=== PATIENT | female | born 1950 | race Caucasian/White ===

== ENCOUNTER → 2016-02-19 | Outpatient (CLI) | payer OTHER, BC ==
[~2016-02-19] MED LIST: CITRACAL PO; CMD5 PO; CYAN3INJ; FRRS300 PO; MULT-506 PO; OXYC-57 PO; OXYSR20 PO
[2016-02-19 18:02] LABS: PROTHROMBIN TIME (PATIENT) 10.3 SECONDS (9.0-12.0)
[2016-02-19 18:11] LABS: BASO % 0.2 %; BASO ABS # 0.02 K/uL (0-0.2); COMPLETE YES; EOS % 0.5 %; HEMATOCRIT 34.4 % (37-47); IG% 0.4 %; LYMPH % 18.3 %; LYMPH ABS # 1.71 K/uL (1.2-3.4); MEAN CORPUSCULAR HGB CONC 29.9 g/dl (32-36); MEAN PLATELET VOLUME 8.9 fL (7.4-10.4); MONO % 5.9 %; NEUT % 74.7 %; PLATELET COUNT 271 K/uL (130-400); RED BLOOD COUNT 4.47 M/uL (4.2-5.4); WHITE BLOOD COUNT 9.34 K/uL (4.8-10.8)
[2016-02-19 18:13] LABS: ALT/SGPT 28 U/L (12-78); AST/SGOT 23 U/L (15-37); BLOOD UREA NITROGEN 8 mg/dl (7-18); BUN/CREATININE RATIO 10.7 (10-20); CALCIUM 8.5 mg/dl (8.5-10.1); CARBON DIOXIDE 27 mmol/L (21-32); CHLORIDE 109 mmol/L (98-107); CREATININE 0.71 mg/dl (0.60-1.20); GLUCOSE 119 mg/dl (70-99); SODIUM 143 mmol/L (136-145)
[2016-02-19 18:16] LABS: ALB/GLOB RATIO 0.9 (0.9-2); ALKALINE PHOSPHATASE 144 U/L (45-117)
== END | disposition home or self-care (01) ==
LOC: C.LABMFLN 15:00
PROVIDERS: ATTEND Family Medicine
DX: I82.4Y2 Acute embolism and thrombosis of unspecified deep veins of left proximal lower extremity (principal)

== ENCOUNTER → 2016-02-19 | Outpatient (CLI) | payer OTHER, BC ==
--- NOTE | 2016-02-19 13:07 | DIAGNOSTIC IMAGING REPORT ---
LEFT LOWER EXTREMITY VENOUS DOPPLER CLINICAL HISTORY: PHLEBITIS OF LEFT LEG COMPARISON STUDY: No previous studies for comparison. TECHNIQUE: Sonography of the deep venous system of the left lower extremity was performed. Compression and augmentation were evaluated. FINDINGS: There is occlusive thrombus within the left common femoral vein. This vessel appears expanded. There is also thrombus within the left greater saphenous vein. No additional sites of venous thrombus are identified within the left lower extremity. IMPRESSION: Occlusive deep venous thrombus within the left common femoral vein. The appearance favors acute thrombus. In addition, occlusive superficial thrombus is noted within the left greater saphenous vein. Electronically signed by: Gary Liu M.D. 02/19/2016 1:05 PM
== END | disposition home or self-care (01) ==
LOC: C.ULTRBC 12:10
PROVIDERS: ATTEND Family Medicine
DX: I82.412 Acute embolism and thrombosis of left femoral vein (principal); I82.812 Embolism and thrombosis of superficial veins of left lower extremity

== ENCOUNTER → 2016-03-25 | Outpatient (CLI) | payer OTHER, BC ==
[2016-03-25 13:19] LABS: HEMATOCRIT 32.1 % (37-47); MEAN CELL VOLUME 77.9 fL (80-100); MEAN CORPUSCULAR HEMOGLOBIN 22.8 pg (25-34); MEAN CORPUSCULAR HGB CONC 29.3 g/dl (32-36); PLATELET COUNT 269 K/uL (130-400); RED BLOOD COUNT 4.12 M/uL (4.2-5.4); WHITE BLOOD COUNT 6.19 K/uL (4.8-10.8)
[2016-03-25 13:23] LABS: FERRITIN 4.9 ng/ml (8.0-388.0)
[2016-03-25 13:44] LABS: OVALOCYTES 1+; VACUOLIZATION 1+
[2016-03-25 13:51] LABS: COMPLETE YES; LYMPH ABS # 1.42 K/uL (1.2-3.4)
[2016-03-25 13:53] LABS: MDIFF REQUEST Y
== END | disposition home or self-care (01) ==
LOC: C.LABMFLN 12:23
PROVIDERS: ATTEND Internal Medicine Hematology & Oncology
DX: I82.412 Acute embolism and thrombosis of left femoral vein (principal); D50.0 Iron deficiency anemia secondary to blood loss (chronic)

== ENCOUNTER → 2016-04-04 | Outpatient (CLI) | payer OTHER, BC ==
[~2016-04-04] MED LIST changes: +MethylPREDNISolone HOME PACK 16 MG TAB PO SCH; +OPTIRAY 320 IV PRN
--- NOTE | 2016-04-04 13:49 | DIAGNOSTIC IMAGING REPORT ---
CT OF THE ABDOMEN AND PELVIS WITH CONTRAST CLINICAL HISTORY: Anemia. Left leg deep venous thrombus. COMPARISON STUDY: None. TECHNIQUE: The patient was pretreated for an IV dye allergy as per protocol. Following IV administration of 94 mL of Optiray-320, axial images of the abdomen and pelvis were obtained from the lung bases to the proximal femurs. Images were reviewed in the axial, sagittal, and coronal planes. IV contrast was administered without complication. Oral contrast was administered. CT DOSE: 1087.78 mGycm FINDINGS: There are findings consistent with gastric bypass. The liver, spleen, adrenal glands and pancreas are unremarkable. There is no biliary ductal dilatation status post cholecystectomy. There is no pancreatic ductal dilatation. There are bilateral renal calculi which measure up to 5 mm. There is prominence of both renal pelves which likely reflect extrarenal pelves. The caliber and wall thickness of small and large bowel are normal. There is no evidence for a bowel obstruction. There is no lymphadenopathy. The IVC and bilateral external iliac veins are patent. No hemoperitoneum is present. No suspicious skeletal lesions are identified. IMPRESSION: 1. No acute process within the abdomen or pelvis. 2. Bilateral nephrolithiasis. No ureteral calculi. Prominence of both renal pelves suggestive of extrarenal pelves. 3. Status post gastric bypass. No evidence for a bowel obstruction. Electronically signed by: Gary Liu M.D. 04/04/2016 1:47 PM Dictated Date/Time: 04/04/2016 1:38 PM
--- NOTE | 2016-04-04 14:30 | DIAGNOSTIC IMAGING REPORT ---
ULTRASOUND BILATERAL LOWER EXTREMITY VENOUS CLINICAL HISTORY: Anemia. Follow-up the venous thrombosis. COMPARISON STUDY: Left lower extremity venous ultrasound dated 02/19/2016. TECHNIQUE: Real-time, grayscale, and color Doppler sonography of the deep veins of the right and left lower extremity was performed from the inguinal crease to the calf. Compression and augmentation were utilized. FINDINGS: There is no sonographic evidence of deep venous thrombosis identified in the right or left lower extremity. The common femoral, superficial femoral, and popliteal veins are patent and normally compressible bilaterally. The greater saphenous vein and the profunda femoris vein at the junction with the common femoral vein are clear in both legs. The visualized calf veins are patent bilaterally. IMPRESSION: There is no sonographic evidence of deep venous thrombosis identified in the right or left lower extremity. Deep venous thrombosis in the left lower extremity seen on 02/19/2016 has resolved. Electronically signed by: Max Iverson M.D. 04/04/2016 2:28 PM Dictated Date/Time: 04/04/2016 2:27 PM
--- NOTE | 2016-04-08 13:40 | CODING QUERY MEDICAL NECESSITY ---
SUPPORTING DIAGNOSIS NEEDED A supporting diagnosis is required for the test/procedure performed on this patient in order for us to be reimbursed by the patient's insurance. Please provide a supporting diagnosis for the following test/procedure listed below next to the test name along with your signature. *If there is no additional diagnosis for this patient that would support the following test/procedure please document that below next to the test/procedure. Test(s)/Procedure(s) that require a supporting diagnosis: * VENOUS DOPPLER LOWER EXTREMITY DIAGNOSIS: * DOS: 04/04/16 Provider Signature: Date: Thank you Domi Paige Health Information Management Once completed, please kindly fax back to [phone] For questions please call [phone]
== END | disposition home or self-care (01) ==
LOC: C.CTS 13:17
PROVIDERS: ATTEND Family Medicine
DX: D64.9 Anemia, unspecified (principal); I82.4Y2 Acute embolism and thrombosis of unspecified deep veins of left proximal lower extremity; N20.0 Calculus of kidney; Z98.84 Bariatric surgery status; I82.409 Acute embolism and thrombosis of unspecified deep veins of unspecified lower extremity

== ENCOUNTER → 2016-07-03 | Outpatient (CLI) | payer OTHER, BC ==
[~2016-07-03] MED LIST changes: -MethylPREDNISolone HOME PACK 16 MG TAB PO SCH; -OPTIRAY 320 IV PRN
[2016-07-03 13:07] LABS: HEMATOCRIT 41.9 % (37-47); MEAN CELL VOLUME 86.7 fL (80-100); MEAN CORPUSCULAR HEMOGLOBIN 26.5 pg (25-34); MEAN PLATELET VOLUME 9.1 fL (7.4-10.4); PLATELET COUNT 208 K/uL (130-400); RED BLOOD COUNT 4.83 M/uL (4.2-5.4); WHITE BLOOD COUNT 5.99 K/uL (4.8-10.8)
[2016-07-03 13:09] LABS: MEAN CORPUSCULAR HGB CONC 30.5 g/dl (32-36)
[2016-07-03 13:28] LABS: ANISOCYTOSIS PRESENT; BASOPHIL % 1.7 %; EOSINOPHIL % 0.9 %; LYMPH ABS # 2.55 K/uL (1.2-3.4); LYMPHOCYTE % 42.6 %; NEUTROPHILS % 52.2 %; OVALOCYTES 1+
[2016-07-03 13:37] LABS: CALCIUM 8.7 mg/dl (8.5-10.1)
[2016-07-03 13:41] LABS: ALKALINE PHOSPHATASE 123 U/L (45-117); ALT/SGPT 26 U/L (12-78); AST/SGOT 28 U/L (15-37); BLOOD UREA NITROGEN 10 mg/dl (7-18); BUN/CREATININE RATIO 14.3 (10-20); CARBON DIOXIDE 26 mmol/L (21-32); CHLORIDE 109 mmol/L (98-107); CREATININE 0.67 mg/dl (0.60-1.20); FERRITIN 54.4 ng/ml (8.0-388.0); GLUCOSE 139 mg/dl (70-99); MAGNESIUM 2.1 mg/dl (1.8-2.4); POTASSIUM 3.6 mmol/L (3.5-5.1); SODIUM 142 mmol/L (136-145); TOTAL IRON BINDING CAPACITY 331 mcg/dl (250-450)
[2016-07-03 14:08] LABS: MDIFF REQUEST Y
[2016-07-03 14:19] LABS: PHOSPHORUS 2.7 mg/dl (2.5-4.9)
== END | disposition home or self-care (01) ==
LOC: C.LABMFLN 13:50
PROVIDERS: ATTEND Internal Medicine Hematology & Oncology
DX: I82.412 Acute embolism and thrombosis of left femoral vein (principal); D50.0 Iron deficiency anemia secondary to blood loss (chronic)

== ENCOUNTER → 2017-02-24 | Outpatient (CLI) | payer OTHER, BC ==
[2017-02-24 12:50] LABS: BASO % 0.3 %; BASO ABS # 0.02 K/uL (0-0.2); EOS % 0.8 %; EOS ABS # 0.05 K/uL (0-0.5); HEMATOCRIT 43.1 % (37-47); IG# 0.01 K/uL (0.00-0.02); LYMPH % 27.1 %; LYMPH ABS # 1.68 K/uL (1.2-3.4); MEAN CELL VOLUME 93.3 fL (80-100); MEAN CORPUSCULAR HEMOGLOBIN 30.3 pg (25-34); MEAN CORPUSCULAR HGB CONC 32.5 g/dl (32-36); MEAN PLATELET VOLUME 9.3 fL (7.4-10.4); MONO % 7.1 %; MONO ABS # 0.44 K/uL (0.11-0.59); NEUT % 64.5 %; NEUT ABS # 3.99 K/uL (1.4-6.5); PLATELET COUNT 225 K/uL (130-400); RED CELL DISTRIBUTION WIDTH CV 13.8 % (11.5-14.5); RED CELL DISTRIBUTION WIDTH SD 47.2 fL (36.4-46.3); WHITE BLOOD COUNT 6.19 K/uL (4.8-10.8)
[2017-02-24 13:15] LABS: ALBUMIN 3.6 gm/dl (3.4-5.0); ALT/SGPT 22 U/L (12-78); AST/SGOT 26 U/L (15-37); BLOOD UREA NITROGEN 10 mg/dl (7-18); CALCIUM 8.9 mg/dl (8.5-10.1); CARBON DIOXIDE 23 mmol/L (21-32); CREATININE 0.72 mg/dl (0.60-1.20); GLUCOSE 137 mg/dl (70-99); POTASSIUM 3.7 mmol/L (3.5-5.1); SODIUM 140 mmol/L (136-145)
[2017-02-24 13:19] LABS: ALKALINE PHOSPHATASE 150 U/L (45-117); TOTAL PROTEIN 7.5 gm/dl (6.4-8.2); TRANSFERRIN 345 mg/dl (200-360)
== END | disposition home or self-care (01) ==
LOC: C.LABMFLN 10:17
PROVIDERS: ATTEND Internal Medicine Hematology & Oncology
DX: D50.0 Iron deficiency anemia secondary to blood loss (chronic) (principal)

== ENCOUNTER → 2017-06-05 | Outpatient (CLI) | payer OTHER, BC | END | disposition home or self-care (01) | LOC: C.PATHSPEC 10:50 | PROVIDERS: ATTEND Dentist Oral and Maxillofacial Pathology | DX: M27.0 Developmental disorders of jaws (principal) ==

== ENCOUNTER → 2017-10-03 | Outpatient (CLI) | payer OTHER, BC ==
[2017-10-03 13:34] LABS: BASO % 0.4 %; BASO ABS # 0.02 K/uL (0-0.2); EOS % 1.3 %; EOS ABS # 0.06 K/uL (0-0.5); HEMATOCRIT 42.2 % (37-47); HEMOGLOBIN 13.3 g/dL (12.0-16.0); IG# 0.01 K/uL (0.00-0.02); LYMPH % 26.8 %; LYMPH ABS # 1.21 K/uL (1.2-3.4); MEAN CORPUSCULAR HEMOGLOBIN 29.6 pg (25-34); MEAN CORPUSCULAR HGB CONC 31.5 g/dl (32-36); MEAN PLATELET VOLUME 9.3 fL (7.4-10.4); MONO % 7.1 %; MONO ABS # 0.32 K/uL (0.11-0.59); NEUT % 64.2 %; NEUT ABS # 2.89 K/uL (1.4-6.5); PLATELET COUNT 210 K/uL (130-400); RED CELL DISTRIBUTION WIDTH CV 14.1 % (11.5-14.5); RED CELL DISTRIBUTION WIDTH SD 48.5 fL (36.4-46.3); WHITE BLOOD COUNT 4.51 K/uL (4.8-10.8)
[2017-10-03 14:01] LABS: ALBUMIN 3.5 gm/dl (3.4-5.0); ALKALINE PHOSPHATASE 138 U/L (45-117); ALT/SGPT 21 U/L (12-78); AST/SGOT 25 U/L (15-37); BLOOD UREA NITROGEN 10 mg/dl (7-18); CALCIUM 8.8 mg/dl (8.5-10.1); CARBON DIOXIDE 26 mmol/L (21-32); CREATININE 0.76 mg/dl (0.60-1.20); GLUCOSE 121 mg/dl (70-99); POTASSIUM 3.8 mmol/L (3.5-5.1); SODIUM 140 mmol/L (136-145); TOTAL PROTEIN 7.3 gm/dl (6.4-8.2); TRANSFERRIN 331 mg/dl (200-360)
== END | disposition home or self-care (01) ==
LOC: C.LABMFLN 11:12
PROVIDERS: ATTEND Internal Medicine Hematology & Oncology
DX: D50.0 Iron deficiency anemia secondary to blood loss (chronic) (principal)

== ENCOUNTER 2020-08-30 08:16 | Observation (INO) ==
--- NOTE | 2020-08-10 10:26 | PAT Medication Instructions ---
Medication Instructions Date of Service August 10, 2020 Home Medications Medication Instructions Recorded trazodone 50 mg tablet 50 mg PO .HS PRN #30 tab 07/09/20 nystatin 100,000 unit/gram topical 1 applic TOPICAL BID #60 g 07/26/20 cream multivitamin 1 tab PO QAM cyanocobalamin (vitamin B-12) 1,000 mcg/mL injection kit 1,000 mcg SQ Q3MO omeprazole 40 mg capsule,delayed release 40 mg PO DAILY PRN trazodone 50 mg tablet 50 mg PO .HS PRN nystatin 100,000 unit/gram topical cream 1 applic TOPICAL BID acetaminophen [Tylenol Extra Strength] 500 mg PO QID PRN aspirin 325 mg PO QAM polysaccharide iron complex [Ferrex 150] 150 mg PO QAM pravastatin 10 mg PO QAM Continue as directed cyanocobalamin (vitamin B-12) 1,000 mcg/mL injection kit 1,000 mcg SQ Q3MO ASK your prescriber and surgeon aspirin 325 mg PO QAM STOP taking 24 hours before surgery nystatin 100,000 unit/gram topical cream 1 applic TOPICAL BID DO NOT take the morning of surgery multivitamin 1 tab PO QAM polysaccharide iron complex [Ferrex 150] 150 mg PO QAM Take morning of surgery With a small sip of water, OTHERWISE NOTHING TO EAT OR DRINK AFTER MIDNIGHT: omeprazole 40 mg capsule,delayed release 40 mg PO DAILY PRN (if needed) acetaminophen [Tylenol Extra Strength] 500 mg PO QID PRN (okay to take up to 4 hours prior to surgery if needed) pravastatin 10 mg PO QAM Take evening before surgery trazodone 50 mg tablet 50 mg PO .HS PRN (if needed) acetaminophen [Tylenol Extra Strength] 500 mg PO QID PRN (if needed) Other Notes If you have any questions please call us at [phone] or [phone] or [phone] or [phone]
--- NOTE | 2020-08-15 10:24 | Anesthesiology Consultation ---
Date of Service August 15, 2020 Assessment & Plan (1) Encounter for pre-operative examination: Chart Review Chart Review: Acceptable Risk for Surgery (pending preop Covid testing results ) and Patient seen in Pre Admission Testing -Per surgeon's office- ASA 325mg being held 10 days prior to surgery- can continue ASA 81mg perioperatively (surgeon's office will update patient). Pt will also get approval from survey manager. Per PAT appt on 08/15/20, patient denies any recent travel or large group activities. No known Covid positive contacts or Covid related symptoms. Denies known Covid infection in the past 90 days. Preop Covid testing scheduled 08/28/20= will await results. Educated on importance of self quarantining, social distancing and wearing mask in public both for the patient after Covid testing done. Pt fully vaccinated for Covid. Teaching & Discussion Pre-Anesthesia Teaching/Discussion Notes: Instructed NPO after midnight before surgery,except medications with 15 cc of water. Medication instructions provided according to the PAT guidelines. History Surgery Operation Date: 08/30/20 12:30 Proposed Procedures p Left Total Hip Arthroplasty - Tanner Harrell MD Height/Weight Height: 5 ft 4 in Weight: 95.5 kg Allergies Allergy/AdvReac Type Severity Reaction Status Date / Time Iodinated Contrast Media Allergy Unknown RASH Verified 08/08/20 09:40 latex Allergy Unknown Rash Verified 08/08/20 09:40 morphine AdvReac Intermediate TREMORS Verified 08/08/20 09:40 simvastatin AdvReac Unknown LEG PAIN Verified 08/08/20 09:40 Medications Home Medications Medication Instructions Recorded Confirmed Last Taken multivitamin 1 tab PO QAM 03/26/19 08/08/20 Unknown cyanocobalamin (vitamin B-12) 1,000 mcg SQ Q3MO ea 12/03/19 08/08/20 Unknown 1,000 mcg/mL injection kit omeprazole 40 mg capsule,delayed 40 mg PO DAILY PRN cap 06/14/20 08/08/20 Unknown release trazodone 50 mg tablet 50 mg PO .HS PRN #30 tab 07/09/20 08/08/20 Unknown nystatin 100,000 unit/gram topical 1 applic TOPICAL BID #60 g 07/26/20 08/08/20 Unknown cream acetaminophen [Tylenol Extra 500 mg PO QID PRN 08/08/20 08/08/20 Unknown Strength] aspirin 325 mg PO QAM 08/08/20 08/08/20 Unknown polysaccharide iron complex 150 mg PO QAM 08/08/20 08/08/20 Unknown [Ferrex 150] pravastatin 10 mg PO QAM 08/08/20 08/08/20 Unknown Past Medical History Medical History Cataracts, both eyes GERD (gastroesophageal reflux disease) Mild/occ; PRN Omeprazole use- last used 2 months ago History of DVT (deep vein thrombosis) RLE - July 2016 - unk etiology - on ASA 325mg History of kidney stones No current issues History of skin cancer Removed - 35 years ago Hyperlipidemia Insomnia Iron deficiency anemia No recent iron infusions; takes oral iron daily Prediabetes Diet controlled Slow to wake up after anesthesia Urinary leakage Exercise / Class Metabolic Activity II 4-5 Yardwork/Stairs/Walk up hill (one flight of stairs - no chest pain or SOB ) Past Family History Family History Mother Alzheimer disease Father Alzheimer disease Other No family history of adverse response to anesthesia Denies family history of Ovarian cancer Prostate cancer Myocardial infarction Breast cancer Colorectal cancer Past Surgical History Surgical History H/O colonoscopy oct 2013 repeat 10yrs H/O lithotripsy H/O oophorectomy History of esophagogastroduodenoscopy (EGD) S/P gastric bypass S/P hysterectomy S/P inguinal hernia repair S/P knee replacement Left S/P panniculectomy Past Anesthesia History No Hx of Anesthesia Complications (with exception to slow to wake- just groggy- no reintubation or ICU stay ) and No Family Hx of Anesthesia Complications History of PONV No Hx of PONV and No Hx of Motion Sickness Social History Smoking Status: Never smoker Do You Dip or Chew Tobacco: No Hx Alcohol Use: Yes Alcohol type: wine alcohol intake frequency: holidays/special occasions only Hx Substance Use: No substance use type: does not use Review of Systems Hx of blood transfusion- s/p childbirth Patient denies chest pain, shortness of breath, dyspnea on exertion, cough, wheezing, palpitations. No hx of seizures, stroke, [place], apnea/snoring. Physical Exam Vital Signs VITALS BP 131/88 P 73 TEMP 98.2 SP02 98% RESP 16 Constitutional no acute distress ENMT Mouth: no TMJ clicking Thyromental Distance: > or= 3.5 Finger Breadths (3.5) Mallampati Class: III Full dentures on top and bottom Neck + limited neck extension (mild ) Respiratory normal respiratory effort; no respiratory distress Auscultation: lungs clear to auscultation bilaterally; no wheezes Cardiovascular Rate/Rhythm: regular rate and regular rhythm Heart Sounds: no murmur Vessels: no carotid bruit Musculoskeletal Spine: no pain with cervical ROM Extremities: extremities normal to inspection Psychiatric Orientation: alert Lab Results Anesthesia Preop Results Results Anesthesia Widget: WBC 5.03 K/uL (4.8-10.8) 08/15/20 Hgb 14.4 g/dL (12.0-16.0) 08/15/20 Hct 44.6 % (37-47) 08/15/20 Plt 199 K/uL (130-400) 08/15/20 Na 140 mmol/L (136-145) 08/15/20 K 4.0 mmol/L (3.5-5.1) 08/15/20 Cl 108 mmol/L (98-107) H 08/15/20 CO2 29 mmol/L (21-32) 08/15/20 BUN 14 mg/dl (7-18) 08/15/20 Creat 0.67 mg/dl (0.6-1.2) 08/15/20 Glucose Level 111 mg/dl (70-99) H 08/15/20 PT 10.5 Seconds (9.0-12.0) 08/15/20 PTT 26.7 Seconds (21.0-31.0) 08/15/20 INR 1.0 (0.9-1.1) 08/15/20 HA1c 6.2 % (4.5-5.6) H 07/25/20 Urine Color Yellow 07/05/20 Urine Appearance Clear (Clear) 07/05/20 Urine pH 6.0 (4.5-7.5) 07/05/20 Urine Specific [place] 1.010 (1.000-1.030) 07/05/20 Urine Protein Negative (Negative) 07/05/20 Urine Glucose (UA) Negative (Negative) 07/05/20 Urine Ketones Negative (Negative) 07/05/20 Urine Blood Negative (Negative) 07/05/20 Urine Nitrite Negative (Negative) 07/05/20 Urine Bilirubin Negative (Negative) 07/05/20 Urine Urobilinogen Negative (Negative) 07/05/20 Urine Leukocyte Esterase Trace (Negative) H 07/05/20 Urine WBC (Auto) 0 /hpf (0-5) 07/05/20 Urine RBC (Auto) 0-4 /hpf (0-4) 07/05/20 Urine Hyaline Casts (Auto) 1-5 /lpf (0-5) 07/05/20 Urine Epithelial Cells (Auto) 20-30 /lpf (0-5) H 07/05/20 Urine Bacteria (Auto) Negative (Negative) 07/05/20 Blood Type O Positive 08/15/20 Antibody Screen NEGATIVE 08/15/20 Testing Laboratory Results 07/25/20= HGB A1C: 6.2 Electrocardiogram Date: 08/15/20 Findings: + NSR @ (73bpm) Left axis deviation. Incomplete LBBB. When compared to EKG from August 03, 2012- no significant change was found per cardio. (EKG from 07/18/16 also included showing iLBBB- pt had negative stress test 08/15/2016) Chest X-Ray Date: 08/15/20 Findings: + NAD Stress Test Date: 08/02/16 Type: DSE Resting EF: 55-59% Resting RWMA: + none Valvular Disease: no significant valvular disease DSE examinations normal without resting LV wall motion abnormalities or inducible ischemia. MPHR 93%. No significant arrhythmias noted. Normal heart rate and blood pressure response to dobutamine infusion. Grade 1 diastolic dysfunction. Nondilated cardiac chambers. Stress EKG no significant ST changes during peak infusion. No evidence of ischemia.
--- NOTE | 2020-08-26 09:58 | History and Physical Report ---
DATE OF ADMISSION: 08/30/2020 CHIEF COMPLAINT: Left hip pain. HISTORY OF PRESENT ILLNESS: A 70-year-old female well known to me from previous left knee replacemen t in the past. She has had about a 7-month history of increasing left hip pain and discomfort that s tarted on the lateral side of her hip and then started to radiate down into her groin area. It has b ecome more debilitating over time. She has been through extensive conservative treatment including m edicines, which have not been very successful. It hurts her all the time. The more she walks, the m ore it hurts. She limps more as the day goes on. She does not want to keep living like this and wou ld like to have her hip fixed. PAST MEDICAL HISTORY: Significant for, 1. Gastrointestinal reflux disease. 2. Obesity with a BMI of 37, status post gastric bypass surgery. 3. Mild back pain. 4. Kidney stones. 5. Skin cancer. PREVIOUS SURGICAL HISTORY: Includes, 1. Gastric bypass surgery 14 years ago. 2. Carpal tunnel release. 3. Left knee replacement done on 06/19/2007. 4. Cholecystectomy. 5. Hysterectomy. 6. Herniorrhaphy. ALLERGIES: None. CURRENT MEDICATIONS: 1. Iron. 2. Aspirin once a day. 3. Tramadol. 4. Trazodone. SOCIAL HISTORY: A 70-year-old female. Lives in [place]. She is retired. Does not smoke. Rare a lcohol intake. FAMILY HISTORY: Noncontributory. REVIEW OF SYSTEMS: Negative for diabetes, neurologic problem, vascular problems or bleeding disorder s. She does have a questionable DVT in the past. There is no known clotting disorder. No history o f PE. PHYSICAL EXAMINATION: GENERAL: Shows a pleasant, healthy appearing, middle-aged female. HEENT: Benign. NECK: Supple, no lymphadenopathy. LUNGS: Clear to auscultation. HEART: Regular rate and rhythm. ABDOMEN: Soft, nontender, nondistended. EXTREMITIES: Grossly neurovascularly intact except as follows: Examination of the left lower extrem ity reveals the patient walks with a bit of a limp. Leg lengths clinically appear pretty equal. She has significant pain with any type of hip motion, particularly internal rotation, which rotates to n eutral. Negative straight leg raise. Her knee incision has healed nicely without signs of swelling. X-RAYS: X-rays of the left hip were reviewed. It shows advanced left hip DJD. She has got fairly c oncentric hip arthritis. Pincer type impingement. She still does have some superior joint space. S he has got a little bit of disuse osteopenia. X-rays of the lumbar spine reveal some moderate lumbar spondylosis with some degenerative spondylolis thesis at L4-L5 and L5-S1. Fairly mild. IMPRESSION: A 70-year-old female status post left knee replacement in the past with advanced left hi p degenerative joint disease. I do think the pain is coming most from her hip and not from her back. She has had gastric bypass surgery and her bone quality is not the best. PLAN: We discussed treatment. She would like to have her hip fixed. We are going to proceed with l eft total hip replacement. The risks and benefits of this procedure were explained to the patient in cluding but not limited to DVT, PE, , infection, neurological injury, vascular injury, bleeding problem, pain, limited range of motion, stiffness, failure to relieve her symptoms, incomplete relief of symptoms, need for further surgery in the future, fracture, leg length inequality, nerve palsy, e tc. The patient understands and desires to proceed. Informed consent was obtained. We will have to see what her bone quality is like. We will plan on using an uncemented stem, but if the bone quality is poor, we will use a cemented stem. She is planning to be discharged to home [facility] program. We will use Xarelto for DVT prophylaxis. Job ID: [id number]
[~2020-08-30 08:16] MED LIST changes: +ACETAMINOPHEN 500 MG TAB PO SCH; +BUPIVACAINE 0.5 % 5 MG/1 ML PF 10ML VIAL ONE; -CITRACAL PO; -CMD5 PO; -CYAN3INJ; +FAMOTIDINE 20 MG TAB PO SCH; -FRRS300 PO; +GABAPENTIN 300 MG CAP PO SCH; +LR 500ML BOLUS, THEN 15ML/HR IV SCH; +LR 60ML/HR IV SCH; +METOCLOPRAMIDE HCL 10 MG TABLET PO SCH; -MULT-506 PO; -OXYC-57 PO; -OXYSR20 PO; +TRANEXAMIC ACID 1,000 MG **IV Pre-op IV SCH; +ceFAZolin 2000MG 2,000 MG/15 ML SYR IV SCH
--- NOTE | 2020-08-30 08:36 | History & Physical Bridge Note ---
Date of Service August 30, 2020 History & Physical Bridge Note I have examined the patient, reviewed the History & Physical and in the interval since the performance of the History & Physical I have noted the following changes of clinical significance: no changes noted
[2020-08-30] MEDS ORDERED: ePHEDrine sulfate 50 MG/ML AMP IV PRN (09:15)
[2020-08-30] MEDS ORDERED: ONDANSETRON INJ 2 MG/ML 2 ML VIAL IV PRN ×2 (09:15→14:29)
[2020-08-30] MEDS ORDERED: fentaNYL citrate 100 MCG/2 ML VIAL IV PRN (09:15)
[2020-08-30] MEDS ORDERED: ATROPINE SULFATE 0.1 MG/ML 10ML SYR IV PRN (09:15)
[2020-08-30] MEDS ORDERED: MIDAZOLAM HCL 1 MG/ML 2ML VIAL ONE (09:18)
[2020-08-30] MEDS ORDERED: BUPIVACAINE/EPINEPHRINE 0.5% MPF 1:200,000 30 ML VIAL ONE (10:17)
[2020-08-30] MEDS ORDERED: PHENYLEPHRINE 100MCG/ML 5ML SYR ONE (11:44)
[2020-08-30] MEDS ORDERED: PROPOFOL IV EMULSION 10 MG/ML 20 ML VIAL IV ONE ×2 (11:44)
[2020-08-30] MEDS ORDERED: LIDOCAINE 2% 2 ML VIAL/AMP(20MG/ML) INFIL ONE (11:44)
--- NOTE | 2020-08-30 12:25 | Post Operative Brief Note ---
PG Immediate Post Op with CF Date of Surgery August 30, 2020 Pre & Post Diagnosis Operation Date: 08/30/20 10:40 Pre-Op Diagnosis: Left Hip Osteoarthritis; Chronic Left Hip Abductor Tear Post-Op Diagnosis: Left Hip Osteoarthritis; Chronic Left Hip Abductor Tear I identified the patient and participated in the time-out.: Yes Procedure Operation Date: 08/30/20 10:40 Actual Procedures p Left Total Hip Arthroplasty, Uncemented; Left Hip Abductor Repair(Left) - Tanner Harrell MD Surgeon Tanner Harrell MD [facility] Care Social Worker LALY Dixon Estimated Blood Loss 200 Findings Consistent with Post-Op Diagnosis Fluids 1200 cc Specimens Specimen Description: A: Left femoral head Drains Garcia Catheter Complications None Disposition Accompanied Patient To Recovery: Yes
[2020-08-30] MEDS ORDERED: MEPERIDINE HCL 25 MG/ML CARP/VIAL ONE (12:41)
[2020-08-30] MEDS ORDERED: MEPERIDINE HCL 25 MG/ML CARP/VIAL IV ONE (12:43)
--- NOTE | 2020-08-30 13:02 | XRay Report ---
AP PELVIS, CROSSTABLE LATERAL LEFT HIP History: Left total hip arthroplasty. Degenerative arthritis. Postop. FINDINGS: The patient is status post a left total hip arthroplasty. The hardware is intact. No fractu re or dislocation. Skin pearl are in place. IMPRESSION: Left total hip arthroplasty. No evidence for hardware complication. ACT 112: Negative or not required by law. Electronically signed by: Jhon Israel M.D. 08/30/2020 1:00 PM
--- NOTE | 2020-08-30 13:08 | Anesthesiology Progress Note ---
Date of Service August 30, 2020 Anesthesia Post Procedure Vital Signs Vital Signs: Temp Pulse Pulse Resp BP BP Pulse Ox 08/30/20 13:05 84 14 130/94 96 08/30/20 12:55 36.4 C L 83 14 124/73 99 08/30/20 12:45 75 16 114/87 98 08/30/20 12:30 89 20 119/92 95 08/30/20 12:20 36.6 C 84 18 108/70 100 08/30/20 09:07 36.7 C 71 20 152/89 H 96 Pain Intensity Left Hip: Pain Intensity: 4 Transfer of Care Handoff Completed per policy Notes Mental Status: alert / awake / arousable and participated in evaluation Patient Amnestic to Procedure: Yes Nausea / Vomiting: adequately controlled Pain: adequately controlled Airway Patency, RR, SpO2: stable & adequate BP & HR: stable & adequate Hydration State: stable & adequate Neuraxial Anesthesia: was administered and sensory block is resolving Anesthetic Complications: no major complications apparent and Pt Satisfied with anesthetic care
[2020-08-30] MEDS ORDERED: SODIUM CHLORIDE 0.9% 1000ML 1,000 ML IV SCH (14:29)
[2020-08-30] MEDS ORDERED: METOCLOPRAMIDE HCL INJ 5 MG/ML 2 ML VIAL IV PRN (14:29)
[2020-08-30] MEDS ORDERED: bisacodyL 10 MG SUPP PR PRN (14:29)
[2020-08-30] MEDS ORDERED: HYDROmorphone INJ 0.5 MG/0.5 ML SYR IV PRN (14:29)
[2020-08-30] MEDS ORDERED: ALUMINUM/MAGNESIUM SUSP 30 ML UDC PO PRN (14:29)
[2020-08-30] MEDS ORDERED: MAGNESIUM HYDROXIDE SUSP 30 ML UDC PO PRN (14:29)
[2020-08-30] MEDS ORDERED: NALOXONE HCL 0.4 MG/1 ML VIAL/CARP IV PRN (14:29)
[2020-08-30] MEDS ORDERED: ACETAMINOPHEN 500 MG TAB PO PRN (14:46)
[2020-08-30] MEDS ORDERED: PANTOprazole 40 MG TAB PO PRN (14:54)
[2020-08-30] MEDS: traMADol HCL 50 MG TABLET PO PRN ×2 (15:15→21:15)
[2020-08-30] MEDS: KETOROLAC TROMETHAMINE 15 MG/ML VIAL IV SCH ×2 (16:07→21:16)
[2020-08-30] MEDS: ASCORBIC ACID 500 MG TAB PO SCH (16:08)
--- NOTE | 2020-08-30 16:58 | Operative Report ---
Post Operative Report Pre & Post Diagnosis Operation Date: 08/30/20 10:40 Pre-Op Diagnosis: Left Hip Osteoarthritis; Chronic Left Hip Abductor Tear Post-Op Diagnosis: Left Hip Osteoarthritis; Chronic Left Hip Abductor Tear I identified the patient and participated in the time-out.: Yes Procedure Operation Date: 08/30/20 10:40 Actual Procedures p Left Total Hip Arthroplasty, Uncemented; Left Hip Abductor Repair(Left) - Tanner Harrell MD Surgeon Tanner Harrell MD Digital Media Director LALY Dixon Estimated Blood Loss 200 Findings Consistent with Post-Op Diagnosis Operative findings revealed advanced left hip DJD with grade 4 [id number] disease. She had a lot of osteophytes around the rim of the acetabulum consistent with pincer type impingement. She had a very stiff hip. She also had a chronic hip abductor avulsion/tear. Fluids 1200 cc Specimens Left femoral head sent for pathology. Drains None Anesthesia Type Spinal MAC Complications none Disposition Accompanied Patient To Recovery: Yes Indications Patient is a 70-year-old female whose had about a year history of gradually progressive increasing left hip pain discomfort. She failed all conservative measures. X-rays showed advanced hip arthritis. She elected proceed with surgical treatment. Description of Procedure Operative implants consist of: 1. Biomet G7 size 54 mm acetabular shell. 2. 6.5 cancellous acetabular screws one of the 35 mm in length and 1 to 20 mm length. 3. Highly cross-linked polyethylene liner with a 54 mm outer diameter 36 mm inner diameter. 4. Raymond hole special delivery carrier. 5. Joce Corail size 12 KLA femoral stem. 6. +5/36 mm ceramic articular ball. The patient was taken to the operating room identified and placed on the operating table supine position but all contractors were properly padded. IV antibiotics were 5 by anesthesia team. Spinal anesthetic and the implant in the holding area. A Garcia catheter was placed in sterile fashion with the patient then placed in the right lateral decubitus position. An axillary roll was placed. A Stulberg hip positioner was used for positioning. The left hip and leg were then prepped and draped in usual sterile fashion. A posterior lateral approach to the left hip was then performed to a curvilinear incision centered over the greater trochanter.. Sharp dissection got through subcutaneous tissues down to the IT band gluteal fascia the IT band gluteal fascia incised longitudinally in line with skin incision. The underlying greater bursa was excised. I could observe there was a chronic avulsion of the hip abductors. The posterior capsule along with the piriformis and external rotators were tagged and taken off the posterior aspect of the hip as a single layer taking great care to protect the sciatic nerve at all times. The hip was internally rotated and dislocated. Femoral neck osteotomy cut was made with Final Cut 10 mm above the lesser trochanter. Femoral head was removed and sent for pathology. The femur was retracted anteriorly. Attention drawn the acetabulum. The acetabular labrum was excised. The pulmonary fat was excised with sequential reaming the acetabular was then performed again with a size 43 and progressing up to 53. I did reamed the entrance of the acetabular with a 54 reamer. A 54 mm Biomet G7 acetabular shell was then placed in about 40 degrees of lateral opening and 20 degrees of anteversion. Was fixed with two 6.5 cancellous acetabular screws. Attention drawn the femur. The proximal femur was entered with a cookie-cutter followed by canal finder. I then broached begin the size 8 and progressing up to 12. Got excellent fit of 12. I then trialed the hip and I felt the +5 articular ball provide optimal and ideal stability, appropriate soft tissue tension, and a maximum stability and leg length inequality. I did 1 to make sure hip was extremely stable considering her abductor avulsion. We elect to place these implants. All trial implants were removed. An apex hole special delivery carrier was placed but highly cross-linked polyethylene liner was placed. A size 12 KLA femoral stem was impacted in position. +5/36 mm ceramic articular ball was placed. Hip was located once again found to be stable. Attention drawn drawn toward closing. The wound was irrigated with Some Pulsatile Lavage Solution. I Did Inject Locally with 60 Cc of Half Percent Marcaine with Epinephrine. The Posterior Capsule and External Rotators Were Repaired As a Single Layer through the Posterior Trochanter with #2 Tycron Suture. I Then Scuffed up the Lateral Aspect of the Greater Trochanter. I Placed 2 Juggernaut Anchors 1 Superiorly and 1 Anteriorly in the Trochanter. I Then Fed the Sutures through the Superior and Anterior Hip Abductors and Repaired Them Back down to the Greater Trochanter. The IT Band Gluteal Fascia Then Closed with 1 PDS Suture Running Fashion Subcutaneous Tissues Then Closed with 2 Layers the Deep Layer #2 Vicryl Suture in the Subcutaneous Tissues with 2 Dexon Suture in a Buried Interrupted Fashion the Skin Was Closed Skin [place]. Leg Was Then Cleaned and Dried and a Sterile Prevena Wound VAC Dressing Was Applied Due To Her Thick Soft Tissue Envelope. Patient Then Transferred to the Recovery Room in Stable Condition. Patient Tolerated Procedure Well and There Are No Complications. Monster Dixon, my physician janitorial assistant, was present for the entire procedure. His assistance was essential and required for appropriate patient positioning, prepping and draping, surgical exposure, performing the technical details of the operation, placement the implants, closure of the wound, and placement of the sterile bandage. I attest to the content of the Intraoperative Record and any orders documented therein. Any exceptions are noted below.
[2020-08-30] MEDS: ceFAZolin 2000MG 2,000 MG/15 ML SYR IV SCH (17:32)
[2020-08-30] MEDS ORDERED: TRANEXAMIC ACID / 0.7% NACL 1,000 MG/100 ML BAG IV SCH (18:15)
[2020-08-30] MEDS: DOCUSATE SODIUM 100 MG CAP PO SCH (20:36)
[2020-08-30] MEDS: ASPIRIN 81 MG ECTAB PO SCH (20:37)
[2020-08-30] MEDS ORDERED: SENNA 8.6 MG TAB PO SCH (21:00)
[2020-08-31] MEDS: ceFAZolin 2000MG 2,000 MG/15 ML SYR IV SCH (01:31)
[2020-08-31] MEDS: KETOROLAC TROMETHAMINE 15 MG/ML VIAL IV SCH ×2 (03:40→10:53)
[2020-08-31] MEDS: traMADol HCL 50 MG TABLET PO PRN (06:23)
[2020-08-31 07:18] LABS: Basophils # (auto) 0.01 K/uL (0-0.2); Basophils % (auto) 0.2 %; Eosinophils # (auto) 0.01 K/uL (0-0.5); Eosinophils % (auto) 0.2 %; Hematocrit (blood only) 36.5 % (37-47); Immature Granulocytes # (auto) 0.01 K/uL (0.00-0.02); Immature Granulocytes % (auto) 0.2 %; Lymphocytes # (auto) 1.04 K/uL (1.2-3.4); Lymphocytes % (auto) 18.8 %; Mean Corpuscular Hemoglobin 31.8 pg (25-34); Mean Corpuscular Hgb Conc 32.9 g/dL (32-36); Mean Corpuscular Volume 96.8 fL (80-100); Mean Platelet Volume 9.3 fL (7.4-10.4); Monocytes # (auto) 0.51 K/uL (0.11-0.59); Monocytes % (auto) 9.2 %; Neutrophils # (auto) 3.96 K/uL (1.4-6.5); Neutrophils % (auto) 71.4 %; Platelet Count 157 K/uL (130-400); RDW Coefficient of Variation 13.5 % (11.5-14.5); RDW Standard Deviation 47.9 fL (36.4-46.3); Red Blood Count 3.77 M/uL (4.2-5.4); White Blood Count 5.54 K/uL (4.8-10.8)
[2020-08-31 07:35] LABS: BUN Creatinine Ratio 17.5 (10-20); Calcium 8.2 mg/dl (8.5-10.1); Creatinine Clr Calc Pharmacy 90.1 ml/min; Est GFR (African American) 103.9 ml/min; Est GFR (Non-African American) 89.6 ml/min; Potassium 3.6 mmol/L (3.5-5.1)
[2020-08-31] MEDS ORDERED: dexAMETHasone 10 MG in SYRINGE 0 ML IV SCH (08:00)
[2020-08-31] MEDS: oxyCODONE HCL IR 5 MG TAB (IMMEDIATE RELEASE) PO PRN ×2 (08:05→14:08)
--- NOTE | 2020-08-31 08:44 | Progress Notes ---
DATE OF SERVICE: 08/31/2020. SUBJECTIVE: A 70-year-old female postop day #1 from a left hip replacement. She is doing okay. Santosh e moderate amount of pain. She is requesting a change to the oxycodone as she says tramadol does not work for her. No chest pain or shortness of breath. Not feeling dizzy or lightheaded. OBJECTIVE: VITAL SIGNS: Temperature 36.5. Vital signs stable. GENERAL: She is a pleasant middle-aged female. She is sitting on bed, looks pretty comfortable this morning. LUNGS: Clear to auscultation. HEART: Has a regular rate and rhythm. ABDOMEN: Soft, nontender, nondistended. EXTREMITIES: Grossly neurovascularly intact except as follows: Examination of the left hip and leg reveals the leg to be well aligned. Dressing is clean, dry and i ntact. The Prevena VAC is in place. Her thigh is soft and supple. She can dorsiflex and plantarfle x her foot appropriately. LABORATORY DATA: Hemoglobin 12.0. Hematocrit 36.5. Electrolytes are stable. IMPRESSION: A 70-year-old female postop day #1 from a left hip replacement, doing pretty well. She is requesting a change in her pain medicines. No chest pain or cardiac issues. PLAN: 1. DVT prophylaxis include thigh-high TEDs, SCDs and Xarelto for 1 month. 2. PT, OT, weightbear as tolerated. Left total hip protocol. 3. Pain control. We are going to switch her from tramadol to oxycodone at her request. 4. Disposition: She is planning to be discharged to home with some home health once adequately rosalba patrick and medically stable and pain controlled. Job ID: [id number]
[2020-08-31] MEDS ORDERED: COENZYME Q10 60 MG PO SCH (09:00)
[2020-08-31] MEDS ORDERED: IRON POLYSACCHARIDE COMPLEX 150 MG CAPSULE PO SCH (09:00)
[2020-08-31] MEDS ORDERED: MULTIVITAMIN TAB PO SCH ×2 (09:00)
[2020-08-31] MEDS: ASPIRIN 81 MG ECTAB PO SCH (09:01)
[2020-08-31] MEDS: ASCORBIC ACID 500 MG TAB PO SCH (09:01)
[2020-08-31] MEDS: DOCUSATE SODIUM 100 MG CAP PO SCH (09:01)
[2020-08-31] MEDS ORDERED: RIVAROXABAN 10 MG TABLET PO SCH (13:00)
--- NOTE | 2020-09-05 06:28 | Discharge Summary ---
Date of Service September 05, 2020 Discharge Data Procedures Performed Operation Date: 08/30/20 10:40 Actual Procedures p Left Total Hip Arthroplasty, Uncemented; Left Hip Abductor Repair(Left) - Tanner Harrell MD Hospital Course (1) Status post total hip replacement, left: This is a 70 year old patient admitted on 08/30/20 and underwent total hip arthroplasty. She tolerated the procedure well and there were no complications. Transferred to the PACU post op and later to the orthopedic floor for further care. She was given ancef for antibiotic prophylaxis. She was also given VENKATA stockings, SCDs, and xarelto for DVT prophylaxis. Hemoglobin, hematocrit, and vital signs were monitored during her hospital stay and remained stable. Did not require any blood transfusions. There were no complications during her hospital stay. By post op day #1 the patient was tolerating a regular diet, pain was reasonably controlled with oral pain medicine, and she was participating in physical therapy. On post op day #1 the patient was discharged home. She was given printed discharge instructions including prescriptions for extra strength tylenol, xarelto, and oxycodone. Continue physical therapy, weight bearing as tolerated. Continue hip precautions. Continue VENKATA stockings. Follow up approximately 2 weeks post op or sooner if there are problems or concerns. Coding Level of Care Code None Diagnoses Status post total hip replacement, left Z96.642
[2020-10-17] MEDS ORDERED: CYANOCOBALAMIN 1000 MCG/ML VIAL IM SCH (14:59)
== END 2020-08-31 15:03 | disposition home or self-care (01) ==
LOC: PACUINP 08:16 → ASU 08:16 → 3E 12:20

== ENCOUNTER 2022-04-23 05:58 | Observation (INO) ==
--- NOTE | 2022-03-26 11:12 | PAT Medication Instructions ---
Medication Instructions Date of Service March 26, 2022 Home Medications Medication Instructions Recorded acetaminophen 500 mg tablet 1,000 mg PO TID PRN Pain #180 tabs 09/27/20 (Tylenol Extra Strength) gabapentin 300 mg capsule 600 mg PO HS #60 caps 01/18/22 omeprazole 40 mg capsule,delayed 40 mg PO DAILY PRN gerd #90 caps 02/04/22 release trazodone 50 mg tablet 50 mg PO HS PRN insomnia #30 tabs 03/03/22 multivitamin 1 tab PO QAM aspirin 325 mg tablet 325 mg PO QAM coenzyme Q10 60 mg tablet 60 mg PO QAM acetaminophen 500 mg tablet (Tylenol Extra Strength) 1,000 mg PO TID PRN Pain cyanocobalamin (vitamin B-12) 1,000 mcg/mL injection kit 1,000 mcg IM MONTHLY gabapentin 300 mg capsule 600 mg PO HS omeprazole 40 mg capsule,delayed release 40 mg PO DAILY PRN gerd trazodone 50 mg tablet 50 mg PO HS PRN insomnia cyanocobalamin (vitamin B-12) 1,000 mcg sublingual lozenge 1,000 mcg sublingual QAM ASK your prescriber and surgeon aspirin 325 mg tablet 325 mg PO QAM STOP taking 2 weeks before surgery (or as soon as possible if surgery is within 2 weeks) coenzyme Q10 60 mg tablet 60 mg PO QAM DO NOT take the morning of surgery multivitamin 1 tab PO QAM cyanocobalamin (vitamin B-12) 1,000 mcg/mL injection kit 1,000 mcg IM MONTHLY cyanocobalamin (vitamin B-12) 1,000 mcg sublingual lozenge 1,000 mcg sublingual QAM Take morning of surgery With a small sip of water, OTHERWISE NOTHING TO EAT OR DRINK AFTER MIDNIGHT: acetaminophen 500 mg tablet (Tylenol Extra Strength) 1,000 mg PO TID PRN Pain (if needed) omeprazole 40 mg capsule,delayed release 40 mg PO DAILY PRN gerd (if needed) Take evening before surgery acetaminophen 500 mg tablet (Tylenol Extra Strength) 1,000 mg PO TID PRN Pain (if needed) gabapentin 300 mg capsule 600 mg PO HS omeprazole 40 mg capsule,delayed release 40 mg PO DAILY PRN gerd (if needed) trazodone 50 mg tablet 50 mg PO HS PRN insomnia (if needed) Other Notes If you have any questions please call us at [phone] or [phone] or [phone] or [phone]
--- NOTE | 2022-04-01 09:50 | Anesthesiology Consultation ---
Date of Service April 01, 2022 Assessment & Plan (1) Encounter for pre-operative examination: Chart Review Chart Review: Acceptable Risk for Surgery and Patient seen in Pre Admission Testing - ASA 325mg per surgeon/prescriber discretion Discussed with Dr. Penaloza. Pt currently scheduled as 23 hours observation. If surgeon decides to change patient to Same Day Joint, patient would be acceptable risk for TKA, pending patient is motivated, has good support and surgeon's office completes [facility] Program preop requirements. Per PAT appt on 04/01/22, patient denies any recent travel or large group activities. Pt is vaccinated for Covid. Will leave to surgeon's discretion if preop Covid testing needed. Educated on importance of using Covid precautions one week prior to surgery Left hip- LESLY 08/30/20= SAB at L4-L5 1 attempt. Teaching & Discussion Pre-Anesthesia Teaching/Discussion Notes: Instructed NPO after midnight before surgery,except medications with 15 cc of water. Medication instructions provided according to the PAT guidelines. History Surgery Operation Date: 04/23/22 07:00 Proposed Procedures p Right Total Knee Arthroplasty - Tanner Harrell MD Height/Weight Height: 5 ft 4 in Weight: 94 kg Allergies Allergy/AdvReac Type Severity Reaction Status Date / Time Iodinated Contrast Media Allergy Mild RASH Verified 03/19/22 13:20 latex Allergy Mild Rash Verified 03/19/22 13:20 promethazine [From Phenergan] Allergy Unknown Verified 03/28/22 11:18 morphine AdvReac Intermediate TREMORS, Verified 03/19/22 13:20 cold and shaking simvastatin AdvReac Intermediate LEG PAIN Verified 03/19/22 13:20 propoxyphene AdvReac nausea and Verified 03/28/22 11:18 vomiting adhesive tape Allergy Mild rash Uncoded 03/28/22 11:18 tamsulosin AdvReac Intermediate dizziness Uncoded 03/28/22 11:18 vicodin AdvReac Intermediate nausea and Uncoded 03/28/22 11:18 vomiting Medications Home Medications Medication Instructions Recorded Confirmed Last Taken multivitamin 1 tab PO QAM 03/26/19 03/19/22 Unknown aspirin 325 mg tablet 325 mg PO QAM 08/08/20 03/19/22 08/16/20 08:00 coenzyme Q10 60 mg tablet 60 mg PO QAM 08/23/20 03/19/22 Unknown acetaminophen 500 mg tablet 1,000 mg PO TID PRN Pain #180 tabs 09/27/20 03/19/22 Unknown (Tylenol Extra Strength) cyanocobalamin (vitamin B-12) 1,000 mcg IM MONTHLY 06/22/21 03/19/22 Unknown 1,000 mcg/mL injection kit gabapentin 300 mg capsule 600 mg PO HS #60 caps 01/18/22 03/19/22 Unknown omeprazole 40 mg capsule,delayed 40 mg PO DAILY PRN gerd #90 caps 02/04/22 0 03/19/22 Unknown release trazodone 50 mg tablet 50 mg PO HS PRN insomnia #30 tabs 03/03/22 03/19/22 Unknown cyanocobalamin (vitamin B-12) 1,000 mcg sublingual QAM 03/19/22 03/19/22 Unknown 1,000 mcg sublingual lozenge Past Medical History Medical History BPPV (benign paroxysmal positional vertigo) No recent issues GERD (gastroesophageal reflux disease) Well controlled and stable History of anesthesia reaction after left total hip surgery 08/30/20 was shaking and very cold in recovery room History of DVT (deep vein thrombosis) RLE - July 2016 - unk etiology - on ASA 325mg - no known clotting disorder History of kidney stones No recent issues History of skin cancer Hyperlipidemia Incomplete left bundle branch block Iron deficiency anemia No longer requires PO iron Follows with heme- last seen 09/2021 Peripheral neuropathy Hands and feet (usually at night in feet) Postgastric surgery syndrome Prediabetes Diet controlled Urinary leakage Exercise / Class Metabolic Activity II 4-5 Yardwork/Stairs/Walk up hill (one flight of stairs - no chest pain or SOB) Past Family History Family History Mother Alzheimer disease Father Alzheimer disease Other No family history of adverse response to anesthesia Denies family history of Ovarian cancer Prostate cancer Myocardial infarction Breast cancer Colorectal cancer Past Surgical History Surgical History H/O colonoscopy oct 2013 repeat 10yrs H/O lithotripsy History of esophagogastroduodenoscopy (EGD) History of hysterectomy with unilateral oophorectomy History of laparoscopic cholecystectomy History of left hip replacement 08/30/20 @ [facility] SAB at L4-L5 1 attempt. History of tooth extraction all teeth removed S/P cataract extraction bilateral S/P gastric bypass S/P inguinal hernia repair S/P knee replacement Left S/P panniculectomy Status post left knee replacement Past Anesthesia History No Hx of Anesthesia Complications (with exception to cold and shaking post op ) and No Family Hx of Anesthesia Complications History of PONV No Hx of PONV and No Hx of Motion Sickness Social History Smoking Status: Never smoker Do You Dip or Chew Tobacco: No Hx Alcohol Use: Yes Alcohol type: wine alcohol intake frequency: a few times a week Hx Substance Use: No substance use type: does not use Review of Systems Hx of blood transfusion years ago due to anemia Patient denies chest pain, shortness of breath, dyspnea on exertion, cough, wheezing, palpitations. No hx of seizures, stroke, OH, apnea/snoring. No hx of blood transfusions Physical Exam Vital Signs VITALS BP 124/68 P 83 TEMP 98.2 SP02 97% RESP 16 Constitutional no acute distress ENMT Mouth: no TMJ clicking Thyromental Distance: > or= 3.5 Finger Breadths (3.5) Mallampati Class: III Full dentures on top and bottom Neck neck extension not limited Respiratory normal respiratory effort; no respiratory distress Auscultation: lungs clear to auscultation bilaterally; no wheezes Cardiovascular Rate/Rhythm: regular rate and regular rhythm Heart Sounds: no murmur Vessels: no carotid bruit Musculoskeletal Spine: no pain with cervical ROM Extremities: extremities normal to inspection Psychiatric Orientation: alert Lab Results Anesthesia Preop Results Results Anesthesia Widget: WBC 5.31 K/ul (4.8-10.8) 04/01/22 Hgb 13.7 g/dl (12.0-16.0) 04/01/22 Hct 42.4 % (37.0-47.0) 04/01/22 Plt 182 K/uL (130-400) 04/01/22 Na 142 mmol/L (136-145) 04/01/22 K 4.0 mmol/L (3.5-5.1) 04/01/22 Cl 108 mmol/L (98-107) H 04/01/22 CO2 30 mmol/L (21-32) 04/01/22 BUN 13 mg/dl (6-23) 04/01/22 Creat 0.67 mg/dl (0.6-1.2) 04/01/22 Glucose Level 96 mg/dl (70-99(Fasting)) 04/01/22 PT 11.2 Seconds (9.0-12.0) 04/01/22 PTT 26.8 Seconds (21.0-31.0) 04/01/22 INR 1.1 (0.9-1.1) 04/01/22 HA1c 6.1 % (4.5-5.6) H 04/01/22 Blood Type O Positive 04/01/22 Antibody Screen NEGATIVE 04/01/22 Testing Electrocardiogram Date: 04/01/22 Findings: + NSR @ (75 bpm) Left anterior fascicular block Non specific intra-ventricular conduction block When compared to EKG from July- no significant change was found per cardio Chest X-Ray Date: 04/01/22 Findings: + NAD Stress Test Date: 08/02/16 Type: DSE Resting EF: 55-59% Resting RWMA: + none Valvular Disease: no significant valvular disease DSE examinations normal without resting LV wall motion abnormalities or inducible ischemia. MPHR 93%. No significant arrhythmias noted. Normal heart rate and blood pressure response to dobutamine infusion. Grade 1 diastolic dysfunction. Nondilated cardiac chambers. Stress EKG no significant ST changes during peak infusion. No evidence of ischemia. Other Testing CT pulmonary embolus with contrast 09/21/2021 = no gross pulmonary embolism. Respiratory motion and cardiac pulsations degraded assessment of the right pulmonary artery. Dense and flowing contrast in the SVC causing streak artifacts also limits assessment. Assessment of some of the pulmonary artery is also limited by poor opacification and respiratory motion. Scattered groundglass densities in the left lower lobe likely representing atelectasis. No pleural effusions. Unremarkable large airways. No lobar consolidation. COVID-19 Risk Screen Screening Information COVID-19 Screen Date: 04/01/22 Exposure 21 Days Family/Household +COVID Last 21 Days: No Exposure 10 Days Any COVID Exposure Last 10 Days: No Symptoms Last 10 Days Experienced COVID Sx Last 10 Days: No + COVID 0-90 Days COVID + in Last 0-90 Days: No Risk Plan COVID Risk Plan: No Risk Identified Patient Education COVID Preop Screening Education Complete: Yes
[2022-04-23] MEDS ORDERED: ceFAZolin 2000MG 2,000 MG/15 ML SYR IV SCH (06:00)
[2022-04-23] MEDS ORDERED: METOCLOPRAMIDE HCL 10 MG TABLET PO SCH (06:00)
[2022-04-23] MEDS ORDERED: LR 60ML/HR IV SCH (06:00)
[2022-04-23] MEDS ORDERED: BUPIVACAINE LIPOSOME/PF 266 MG, BUPIVACAINE/EPINEPHRINE 50 ML, SODIUM CHLORIDE 0.9% PF ... INFIL SCH (06:00)
[2022-04-23] MEDS ORDERED: CeleBREX 200 MG CAP PO SCH (06:00)
[2022-04-23] MEDS ORDERED: FAMOTIDINE 20 MG TAB PO SCH (06:00)
[2022-04-23] MEDS ORDERED: ACETAMINOPHEN 500 MG TAB PO SCH (06:00)
[2022-04-23] MEDS ORDERED: LR 15ML/HR IV SCH (06:00)
[2022-04-23] MEDS ORDERED: TRANEXAMIC ACID 1,000 MG **IV Intra-op IV SCH (06:00)
[2022-04-23] MEDS ORDERED: EPINEPHrine INJ 1 MG/ML AMP ONE (06:27)
[2022-04-23] MEDS ORDERED: ROPIVACAINE 0.5% 5 MG/ML 30 ML VIAL ONE (06:27)
[2022-04-23] MEDS ORDERED: BUPIVACAINE 0.5 % 5 MG/1 ML PF 10ML VIAL ONE (06:27)
--- NOTE | 2022-04-23 06:47 | History & Physical Bridge Note ---
Date of Service April 23, 2022 History & Physical Bridge Note I have examined the patient, reviewed the History & Physical and in the interval since the performance of the History & Physical I have noted the following changes of clinical significance: no changes noted
[2022-04-23] MEDS ORDERED: MIDAZOLAM HCL 1 MG/ML 2ML VIAL ONE (07:47)
[2022-04-23] MEDS ORDERED: fentaNYL citrate PF 100 MCG/2 ML VIAL ONE (07:48)
[2022-04-23] MEDS ORDERED: BUPIVACAINE LIPOSOME 1.3% 266 MG/20 ML VIAL ONE (08:47)
[2022-04-23] MEDS ORDERED: SODIUM CHLORIDE 0.9% PF 50 ML VIAL ONE (08:47)
[2022-04-23] MEDS ORDERED: BUPIVACAINE/EPINEPHRINE 0.25% 1:200,000 30 ML VIAL ONE (08:47)
[2022-04-23] MEDS ORDERED: PROPOFOL IV EMULSION 10 MG/ML 20 ML VIAL IV ONE ×2 (09:14→10:13)
[2022-04-23] MEDS ORDERED: ONDANSETRON INJ 2 MG/ML 2 ML VIAL ONE (09:14)
[2022-04-23] MEDS ORDERED: KETOROLAC 30 MG/ML VIAL ONE (10:11)
[2022-04-23] MEDS ORDERED: PHENYLEPHRINE 100MCG/ML 5ML SYR ONE (10:11)
[2022-04-23] MEDS ORDERED: DEXAMETHASONE SOD INJ 4 MG/ML VIAL ONE (10:11)
--- NOTE | 2022-04-23 11:10 | Operative Report ---
PG Post Operative Report Pre & Post Diagnosis Operation Date: 04/23/22 08:50 Pre-Op Diagnosis: Right Knee Advanced Degenerative Joint disease Post-Op Diagnosis: Right Knee Advanced Degenerative Joint disease I identified the patient and participated in the time-out.: Yes Procedure Operation Date: 04/23/22 08:50 Actual Procedures p Right Total Knee Arthroplasty(Right) - Tanner Harrell MD Surgeon Tanner Harrell MD Sustainability Specialist None Estimated Blood Loss 50 Findings Consistent with Post-Op Diagnosis Operative findings revealed advanced right knee tricompartment DJD. She had extensive grade 4 clga-[id number] disease in all 3 compartments with osteophytes in all 3 compartments. She had diffuse osteopenia throughout. Large knee joint effusion. Specimens Right knee sent for pathology. Drains None Anesthesia Type Spinal MAC Complications none Disposition Accompanied Patient To Recovery: No Indications Patient is a 72-year-old female with a long history of multiple joint problems. Over the years she developed progressive arthritis in multiple joints. She has had several joints replaced in the past. She failed conservative treatment respect her right knee and elected proceed with right total knee arthroplasty. Description of Procedure Operative implants consisted of: The 1 Biomet Vanguard size 65 right posterior stabilized femoral component. 2. Biomet size 71 tibial tray. 3. 10 mm posterior stabilized polyethylene insert. 4. 31 x 8 all poly patella. The patient was taken to the operating, identified, and placed on the operating table supine position but all contact areas were appropriately padded. IV antibiotics tried by anesthesia team. A spinal anesthetic and abductor canal block had been provided in the holding area. A Garcia catheter was placed in sterile fashion. Right thigh tent was then placed in the right lower extremity was then prepped and draped in usual sterile fashion. The right leg was elevated and exsanguinated with use of an Esmarch and the tourniquet was placed at 300 mmHg. An anterior approach of the right knee was then performed to longitudinal incision centered over the patella. Sharp dissection was carried through subcutaneous tissue down the extensor mechanism. Medial parapatellar arthrotomy incision was made. Some subperiosteal dissection was carried out medially. The fat pad was resected from Neath patella tendon. Lateral patellofemoral ligament was released. Patella subluxated laterally and the knee was flexed. The osteophytes taken off distal femur. The ACL and PCL were Recent distal femur the tibia subluxated anteriorly. The external tibial alignment exam placed the interface the tibia and adjusted 12 mm medially. Proximal tibial cut was made remove about 3 mm of bone from the medial side. The tibia sized to a size 71. I did try to maximize coverage due to her osteopenia. Attention drawn the femur. The distal femur stem with a sharp drill. Intramedullary canal was suction. A right 5 degree valgus cutting guide was placed. Distal femoral cutting block was pinned in place. Distal femoral cut was made to take an additional 3 mm of bone off distal femur. The femur was then sized to a size 65. The AP cutting block was pinned parallel to the epicondylar axis which was 4 degrees of external rotation. The anterior cut, anterior chamfer, posterior cut, posterior chamfer cuts were made. The box cutting guide was placed in just slight lateral and the box cut was made. The knee was flexed. The remnants of the medial and lateral menisci were excised. The osteophytes were taken off the posterior aspect the femur. A trial femoral component was placed. The tibial tray was pinned in maximum external rotation and the drill and stem punch were used to create defect in proximal tibia for the tibial tray. Knee was then trialed and the 10 mm insert fit most appropriately. Attention drawn the patella. The patella was cleaned of all soft tissues. Patella thickness measured 20 mm in thickness was cut down to 14. It was sized to a size 31 patella. The lug holes were drilled for the 31 patella. The lateral osteophytes removed. Patella button was placed. Knee was taken through range of motion patella tracked nicely with no thumbs test. Attention drawn to placing permanent components. Nupathe all trial components were removed. Bone plug was placed into the distal femur limit blood loss. Double batch Palacos G cement was mixed. Biomet Vanguard size 65 right posterior stabilized femoral component, size 71 tibial tray, 10 mm posterior stabilized polyethylene insert, and a 31 x 8 all Paller patella then cemented in place. Knee was brought out into full extension till cement hardened. Final cement check was then performed. Pericapsular tissues were injected with total 100 cc of combination of 20 cc of Exparel, 30 cc normal saline, 50 cc of quarter percent Marcaine with epinephrine. Patient did receive 1 g tranexamic acid. The tourniquet was let down for final turn time 57 minutes. Hemostasis reduced electrocautery. Extensor mechanism then closed with a combination of #1 PDS suture and #1 Vicryl suture in a [id number] fashion. Extensor mechanism checked found to be intact and the subcutaneous tissues then closed with 2 Dexon suture in a buried interrupted fashion and the skin was closed with skin pearl. Leg was then cleaned and dried and sterile dressed with Xeroform, 4 fours, sterile ABD pad, sterile cast padding, José Miguel bandage. The patient then transferred to the recovery room in stable condition. Patient tolerated procedure well and there were no complications. I attest to the content of the Intraoperative Record and any orders documented therein. Any exceptions are noted below.
[2022-04-23] MEDS ORDERED: ATROPINE SULFATE 0.1 MG/ML 10ML SYR IV PRN (11:21)
[2022-04-23] MEDS ORDERED: ePHEDrine sulfate 50 MG/ML AMP IV PRN (11:21)
[2022-04-23] MEDS ORDERED: MEPERIDINE HCL 25 MG/ML CARP/VIAL ONE (11:24)
--- NOTE | 2022-04-23 11:24 | XRay Report ---
XR knee RT 1 or 2V routine HISTORY: 72 years-old Female Surgical Post Op right knee arthroplasty COMPARISON: Knee radiographs 03/07/2022 TECHNIQUE: 2 views the right knee FINDINGS: Total joint arthroplasty with patellar resurfacing. Anterior midline skin pearl are noted along wit h expected postoperative soft tissue swelling with deep tissue air. No acute fracture or unexpected o paque foreign body. IMPRESSION: Total joint arthroplasty with expected postoperative changes. ACT 112: Negative or not required by law. The above report was generated using voice recognition software. It may contain grammatical, syntax o r spelling errors. Electronically signed by: Aydin Tsai M.D. 04/23/2022 11:23 AM
--- NOTE | 2022-04-23 11:43 | Anesthesiology Progress Note ---
Date of Service April 23, 2022 Anesthesia Post Procedure Vital Signs Vital Signs: Temp Pulse Pulse Resp BP Pulse Ox O2 Del Method 04/23/22 11:35 72 16 124/73 98 Room Air 04/23/22 11:25 86 13 119/66 99 Room Air 04/23/22 11:15 86 20 122/71 100 Oxymask 04/23/22 11:05 88 20 127/67 100 Oxymask 04/23/22 10:59 36.0 C L 89 16 102/68 100 Oxymask 04/23/22 06:26 37 C 90 20 129/74 96 Room Air O2 Flow Rate 04/23/22 11:35 04/23/22 11:25 04/23/22 11:15 3 04/23/22 11:05 9 04/23/22 10:59 9 04/23/22 06:26 Transfer of Care Handoff Completed per policy Notes Mental Status: alert / awake / arousable Patient Amnestic to Procedure: Yes Nausea / Vomiting: adequately controlled Pain: adequately controlled Airway Patency, RR, SpO2: stable & adequate BP & HR: stable & adequate Hydration State: stable & adequate Neuraxial Anesthesia: was administered and sensory block is resolving Anesthetic Complications: no major complications apparent
[2022-04-23] MEDS ORDERED: METOCLOPRAMIDE HCL INJ 5 MG/ML 2 ML VIAL IV PRN (12:05)
[2022-04-23] MEDS ORDERED: NON-FORMULARY MEDICATION (Cyanocobalamin (Vitamin B-12) 1,000 mcg/mL kit) IM SCH (12:05)
[2022-04-23] MEDS ORDERED: oxyCODONE HCL IR 5 MG TAB (IMMEDIATE RELEASE) PO PRN (12:05)
[2022-04-23] MEDS ORDERED: DEXTROSE 50% 50 ML SYRINGE IV PRN (12:05)
[2022-04-23] MEDS ORDERED: GLUCOSE 40% GEL 15 GM TUBE PO PRN (12:05)
[2022-04-23] MEDS ORDERED: GLUCOSE 10 TAB/TUBE PO PRN (12:05)
[2022-04-23] MEDS ORDERED: bisacodyL 10 MG SUPP PR PRN (12:05)
[2022-04-23] MEDS ORDERED: MAGNESIUM HYDROXIDE SUSP 30 ML UDC PO PRN (12:05)
[2022-04-23] MEDS ORDERED: GLUCAGON FOR INJ 1 MG VIAL SQ PRN (12:05)
[2022-04-23] MEDS ORDERED: CARBOHYDRATES FOR HYPOGLYCEMIA PO PRN (12:05)
[2022-04-23] MEDS ORDERED: ONDANSETRON INJ 2 MG/ML 2 ML VIAL IV PRN (12:05)
[2022-04-23] MEDS ORDERED: PHARMACY GLYCEMIC MGMT CONSULT PRN (12:05)
[2022-04-23] MEDS ORDERED: HYDROmorphone INJ 0.5 MG/0.5 ML SYR IV PRN (12:05)
[2022-04-23] MEDS ORDERED: traZODone HCL 50 MG TAB PO PRN (12:05)
[2022-04-23] MEDS ORDERED: NALOXONE HCL 0.4 MG/1 ML VIAL/CARP IV PRN (12:05)
[2022-04-23] MEDS ORDERED: ALUMINUM/MAGNESIUM SUSP 30 ML UDC PO PRN (12:05)
[2022-04-23] MEDS: SODIUM CHLORIDE 0.9% 1000ML 1,000 ML IV SCH (12:12)
[2022-04-23] MEDS ORDERED: PANTOprazole 40 MG TAB PO PRN (12:25)
[2022-04-23] MEDS: KETOROLAC TROMETHAMINE 15 MG/ML VIAL IV SCH ×2 (12:46→17:12)
[2022-04-23] MEDS: INSULIN ASPART PER UNIT SC SCH ×3 (13:09→21:38)
[2022-04-23] MEDS: ACETAMINOPHEN 500 MG TAB PO SCH ×2 (14:08→21:24)
--- NOTE | 2022-04-23 15:01 | Pharmacy Report ---
Pharmacy Glycemic Short Note 2 - Date of Service April 23, 2022 - Glycemic Short BSG Results (Last 24 hours): 04/23/22 12:16 POC Glucose 139 H OUTPATIENT ANTIDIABETIC REGIMEN: * n/a * HbA1c: 6.1% (04/01/22) ASSESSMENT: * Ms Beckford is a 72yo diabetic F who is POD 0 s/p R TKA this morning w/ Dr Harrell. * Pt received IV dexamethasone pre-op this morning and is scheduled to receive one more dose tomorrow morning. This is expected to cause steroid-induced hyperglycemia. * Given patient's A1c and lack of DM meds as an outpt, along with her post-op BSG of 139mg/dL, do not anticipate that pt will require very much insulin. No basal insulin ordered at this time. If pt's BSGs rise overnight, will consider giving her a dose tomorrow morning. PLAN FOR INPATIENT GLYCEMIC CONTROL: * Basal insulin * none at this time -- will reassess tomorrow morning * Bolus insulin * NovoLog per scale ACHS or Q6hrs while NPO * Goal Range: Low 110 mg/dL - High 140 mg/dL * Correction Factor: 25 mg/dL/unit * Nutritional / Prandial insulin per carb ratio of 1 unit per 9 grams CHO consumed
[2022-04-23] MEDS: ASCORBIC ACID 500 MG TAB PO SCH (16:31)
[2022-04-23] MEDS ORDERED: TRANEXAMIC ACID / 0.7% NACL 1,000 MG/100 ML BAG IV SCH (17:00)
[2022-04-23] MEDS: ceFAZolin 2000MG 2,000 MG/15 ML SYR IV SCH (17:12)
[2022-04-23] MEDS ORDERED: SENNA 8.6 MG TAB PO SCH (21:00)
[2022-04-23] MEDS ORDERED: GABAPENTIN 300 MG CAP PO SCH (21:00)
[2022-04-23] MEDS: DOCUSATE SODIUM 100 MG CAP PO SCH (21:23)
[2022-04-24] MEDS: KETOROLAC TROMETHAMINE 15 MG/ML VIAL IV SCH ×2 (00:31→06:09)
[2022-04-24] MEDS: ceFAZolin 2000MG 2,000 MG/15 ML SYR IV SCH (01:37)
[2022-04-24] MEDS: SODIUM CHLORIDE 0.9% 1000ML 1,000 ML IV SCH (01:43)
[2022-04-24] MEDS: ACETAMINOPHEN 500 MG TAB PO SCH (06:08)
[2022-04-24 07:42] LABS: Hematocrit (blood only) 36.7 % (37.0-47.0); Mean Corpuscular Hemoglobin 31.4 pg (25.0-34.0); Mean Corpuscular Hgb Conc 32.7 g/dL (32.0-36.0); Mean Corpuscular Volume 96.1 fL (80.0-100.0); Mean Platelet Volume 9.5 fL (9.4-12.4); Platelet Count 175 K/uL (130-400); Red Blood Count 3.82 M/uL (4.20-5.40); White Blood Count 11.02 K/ul (4.8-10.8)
[2022-04-24 07:54] LABS: BUN Creatinine Ratio 17.3 (10-20); Creatinine Clr Calc Pharmacy 73.2 ml/min; Est GFR (Non-African American) 78.5 ml/min; Potassium 3.9 mmol/L (3.5-5.1)
[2022-04-24] MEDS ORDERED: dexAMETHasone 10 MG in SYRINGE 0 ML IV SCH (08:00)
[2022-04-24] MEDS: ASCORBIC ACID 500 MG TAB PO SCH (08:07)
[2022-04-24] MEDS: DOCUSATE SODIUM 100 MG CAP PO SCH (08:08)
[2022-04-24] MEDS ORDERED: CYANOCOBALAMIN (B-12) 500 MCG TABLET PO SCH (09:00)
[2022-04-24] MEDS ORDERED: DOCUSATE SODIUM/SENNA 50/8.6MG TAB PO SCH (09:00)
[2022-04-24] MEDS ORDERED: NON-FORMULARY MEDICATION (Multivitamin tablet) PO SCH (09:00)
[2022-04-24] MEDS ORDERED: MULTIVITAMIN TAB PO SCH (09:00)
[2022-04-24] MEDS ORDERED: ASPIRIN 325 MG ECTAB PO SCH (09:00)
[2022-04-24] MEDS: INSULIN ASPART PER UNIT SC SCH ×2 (09:00→12:39)
[2022-04-24] MEDS ORDERED: RIVAROXABAN 10 MG TABLET PO SCH (12:00)
--- NOTE | 2022-04-24 13:25 | Progress Notes ---
DATE OF SERVICE: 04/24/2022. SUBJECTIVE: A 72-year-old female, postoperative day 1 from a right knee replacement. She has done w ell. Therapy went well. She rates her worst pain is a 3/10. No chest pain or shortness of breath. Not feeling dizzy or lightheaded, wants to go home. OBJECTIVE: VITAL SIGNS: Temperature is 36.5. Vital signs are stable. GENERAL: Shows a pleasant middle-aged female. She is sitting in her bedside chair, looks comfortabl e. She is talking to her . LUNGS: Clear to auscultation. HEART: Has a regular rate and rhythm. ABDOMEN: Soft, nontender, nondistended. EXTREMITIES: Grossly neurovascularly intact except as follows. Examination of the right leg reveals the dressing to be clean, dry and intact. She can dorsiflex and plantarflex her foot appropriately. She is neurologically intact. ASSESSMENT: A 72-year-old female, postoperative day 1 from right knee replacement, doing well. Pain is controlled. She is neurologically intact. She is hoping to go home. PLAN: 1. DVT prophylaxis includes thigh-high TEDs, SCDs, and she is currently taking Xarelto for 30 days d ue to her history of blood clot in the past. 2. PT/OT, weightbear as tolerated. Right total knee protocol. 3. Pain control, doing okay with current pain regimen. 4. Disposition: Plan to discharge her to home with some home health, likely later today. Job ID: [id number]
== END 2022-04-24 13:05 | disposition home health service (06) ==
LOC: 3E 05:58 → ASU 05:58
DX: Z79.899 Other long term (current) drug therapy; Z96.652 Presence of left artificial knee joint; Z88.5 Allergy status to narcotic agent; Z91.041 Radiographic dye allergy status; M17.11 Unilateral primary osteoarthritis, right knee; Z91.040 Latex allergy status; Z88.8 Allergy status to other drugs, medicaments and biological substances

== ENCOUNTER 2024-12-20 12:41 | Inpatient (IN) ==
--- NOTE | 2024-12-20 13:19 | Emergency Department Note ---
Impression & Plan Central retinal artery occlusion, Alteration in vision, Headache ED Provider Note NAME: WILFREDO HOWARD AGE: 74 SEX: F : 1950 ARRIVES VIA: Walk-In INFORMANT: Patient ED PROVIDER(S): Burke Acevedo DO CHIEF COMPLAINT: Retinal artery occlusion HPI: Patient is a 74-year-old female with a past medical history of diabetes, vertigo, DVT, hyperlipidemia who presents to the ER for sudden onset of right eye pain and blurry vision. She was seen by Dr. Luu today and found to have a occlusion of the right branch retinal artery. Patient denies any headache. No chest pain or shortness of breath. No nausea, vomiting, or diarrhea. No dysuria, urgency or frequency. No other exacerbating or remitting factors. ADDITIONAL HISTORY OBTAINED: Per HPI Chronic Medical/Social Conditions Affecting Care: Per HPI PAST MEDICAL HISTORY:See Below PAST SURGICAL HISTORY:See Below FAMILY HISTORY:See Below SOCIAL HISTORY:See Below HOME MEDICATIONS:See Below ALLERGIES:See Below VITALS:See Below PHYSICAL EXAMINATION: GENERAL: Sitting up in bed, alert, well appearing, well nourished, no distress, non-toxic EYE EXAM: normal conjunctiva. PERRL and EOM's intact. OROPHARYNX: no exudate, no erythema, lips, buccal mucosa, and tongue normal and mucous membranes are moist NECK: supple, no nuchal rigidity, no adenopathy, non-tender LUNGS: Clear to auscultation. Normal chest wall mechanics HEART: no murmurs, S1 normal and S2 normal ABDOMEN: abdomen soft, non-tender, normo-active bowel sounds, no masses, no rebound or guarding. BACK: Back is symmetrical on inspection and there is no deformity, no midline tenderness, no CVA tenderness. SKIN: no rashes and no bruising UPPER EXTREMITIES: upper extremities are grossly normal. LOWER EXTREMITIES: No pitting edema. NEURO EXAM: Normal sensorium, cranial nerves II-XII intact, normal speech, no weakness of arms, no weakness of legs. No drift. Finger to nose intact. Gross sensation intact. MEDICAL DECISION MAKING: Patient is a 74-year-old female who presents to the ER for central retinal branch artery occlusion of the right eye. IV was established blood work is obtained. Labs show no significant leukocytosis or anemia. INR unremarkable. BMP with LFTs bilirubin troponin and TSH are unremarkable. Discussed case with [facility] who recommended admission and complete workup for stroke. Patient was updated in regards to these findings. Dr. Galeano will place a note. Discussed case with the hospitalist for further evaluation management treatment. Patient is a contrast allergy and consequently will need MRIs and MRAs as an inpatient. Not a TNK candidate with symptoms occurring last night. Consults/Care Managements Discussions: Per MDM Triage Nursing notes reviewed. Limited review of prior medical records performed Vital Signs: reviewed and remarkable for HTN Differential diagnosis: Differential Diagnosis includes but is not limited to ischemic Stroke, hemorrhagic stroke, bells palsy, mass, neoplasm, migraine headache, seizure, subarachnoid hemorrhage, TIA, and transient global amnesia. ER treatment provided: See below Diagnostics interpreted by me include EKG and cardiac monitoring as listed below: -Cardiac Monitoring: An order was placed for continuous cardiac monitoring. The monitor shows a rate of 70 with sinus rhythm. -ECG: Sinus rhythm rate 70 Left axis No PVCs QTc 438 -Laboratory studies:Interpreted by me as stated above in MDM and shown below. 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 Secondary hyperparathyroidism Osteoporosis Vitamin D deficiency Lumbar radiculopathy Degenerative arthritis of lumbar spine Trochanteric bursitis, left hip Type 2 diabetes mellitus Vitamin B12 deficiency (Chronic) Nephrolithiasis (Acute) Eczema (Chronic) Acid reflux disease (Chronic) BPPV (benign paroxysmal positional vertigo) Peripheral neuropathy Hands and feet Degenerative joint disease of left elbow Hip bursitis, left Nocturia History of DVT (deep vein thrombosis) RLE - July 2016 - unk etiology - on ASA 325mg - no known clotting disorder Incomplete left bundle branch block Insomnia Hyperlipidemia (Chronic) Iron deficiency anemia (Acute) Medical History Carpal tunnel syndrome Urinary leakage GERD (gastroesophageal reflux disease) Well controlled and stable History of skin cancer Surgical History Status post left hip replacement History of tooth extraction all teeth removed History of laparoscopic cholecystectomy History of hysterectomy with unilateral oophorectomy S/P cataract extraction bilateral History of left hip replacement 08/30/20 @ [facility] SAB at L4-L5 1 attempt. History of esophagogastroduodenoscopy (EGD) H/O colonoscopy oct 2013 repeat 10yrs H/O lithotripsy S/P panniculectomy S/P knee replacement Left and Right S/P inguinal hernia repair Family History Mother Alzheimer disease Father Alzheimer disease Other No family history of adverse response to anesthesia Denies family history of Ovarian cancer Prostate cancer Myocardial infarction Breast cancer Colorectal cancer Social History Smoking Status: Never smoker Second Hand Exposure: No; Do You Dip or Chew Tobacco: No; Hx Alcohol Use: Yes Alcohol type: wine Alcohol Intake Frequency: 2-3 x/Week Hx Substance Use: No Preferred Language: Cymro Communication Ability: Effective Visual Impairment: No Limitations Kinesiology Internship Required: No Beliefs That Will Affect Care: None marital status: Current Living Situation: Spouse current occupational status: retired Feels Safe at Home: Yes Seatbelt Use: always Assistive Devices: Cane, Denture - Upper, Denture - Lower and Glasses Allergies Allergies Allergy/AdvReac Type Severity Reaction Status Date / Time adhesive tape Allergy Mild Rash Verified 12/20/24 15:25 Iodinated Contrast Media Allergy Mild RASH Verified 12/20/24 15:23 latex Allergy Mild Rash Verified 12/20/24 15:23 promethazine [From Phenergan] Allergy Unknown CAN'T Verified 12/20/24 15:23 REMEMBER hydrocodone [From Vicodin] AdvReac Intermediate NAUSEA/VOMI Verified 12/20/24 15:25 TING morphine AdvReac Intermediate TREMORS, Verified 12/20/24 15:23 cold and shaking propoxyphene AdvReac Intermediate nausea and Verified 12/20/24 15:23 vomiting simvastatin AdvReac Intermediate LEG PAIN Verified 12/20/24 15:23 Home Meds Home Medications Medication Instructions Recorded Confirmed aspirin 325 mg tablet 325 mg PO QAM 08/08/20 12/20/24 acetaminophen 650 mg 650 mg PO Q8H PRN Pain 07/17/23 12/20/24 tablet,extended release (Tylenol Arthritis Pain) magnesium citrate 100 mg capsule 150 mg PO DAILY 04/23/24 12/20/24 ferrous sulfate 325 mg (65 mg 325 mg PO BID 07/23/24 12/20/24 iron) tablet Multiple Vitamins & Suppliment 1 dose PO DAILY 12/20/24 12/20/24 Previous Rx's Medication Instructions Recorded furosemide 20 mg tablet 20 mg PO DAILY PRN edema #30 tabs 11/06/23 potassium chloride 10 mEq 10 meq PO DAILY PRN Take with 11/06/23 tablet,extended release furosemide #30 tabs omeprazole 40 mg capsule,delayed 40 mg PO DAILY PRN gerd #90 caps 06/10/24 release tramadol 50 mg tablet 50 mg PO Q6H PRN pain #40 tabs 10/12/24 Evenity 210 mg/2.34 mL (105 210 mg (2.34 mL) subcut MONTHLY 10/29/24 mg/1.17 mL x 2) subcutaneous #2.34 mL syringe (romosozumab-aqqg) trazodone 50 mg tablet 50 mg PO HS PRN insomnia #30 tabs 11/25/24 Results & Data (ED) Vital Signs Vital Signs - 24 hr 12/20/24 12:50 12/20/24 13:45 12/20/24 14:35 Temperature 36.6 C Temperature Source Temporal Artery Scan Pulse Rate 76 78 Pulse Rate [Apical] 76 Pulse Rhythm [Apical] Regular Pulse Strength [Apical] Normal Respiratory Rate 18 22 Respiratory Effort / Characteristics Non-Labored Spontaneous Non-Labored Spontaneous Respiratory Depth Normal Normal Respiratory Pattern Regular Blood Pressure 153/89 H Blood Pressure [Right Arm] 137/60 Blood Pressure Mean 110 Blood Pressure Mean [Right Arm] 85 Pulse Oximetry 99 99 Oxygen Delivery Method Room Air Room Air Sepsis Recent Fever Within 48 Hours No Sepsis New/Unexplained Change in Mental Status N/A Sepsis Action Taken by Nursing No Action Required 12/20/24 14:41 12/20/24 15:00 12/20/24 15:30 Temperature Temperature Source Pulse Rate Pulse Rate [Apical] 72 70 77 Pulse Rhythm [Apical] Regular Regular Regular Pulse Strength [Apical] Normal Normal Normal Respiratory Rate 16 22 12 Respiratory Effort / Characteristics Non-Labored Spontaneous Non-Labored Spontaneous Non-Labored Spontaneous Respiratory Depth Normal Normal Normal Respiratory Pattern Regular Regular Regular Blood Pressure Blood Pressure [Right Arm] 140/81 127/74 142/81 H Blood Pressure Mean Blood Pressure Mean [Right Arm] 100 91 101 Pulse Oximetry 99 97 96 Oxygen Delivery Method Room Air Room Air Room Air Sepsis Recent Fever Within 48 Hours Sepsis New/Unexplained Change in Mental Status Sepsis Action Taken by Nursing Laboratory Data 12/20/24 14:36 12/20/24 14:36 Lab Results 12/20/24 Range/Units 14:36 WBC 5.14 (4.8-10.8) K/ul RBC 4.64 (4.20-5.40) M/uL Hgb 14.4 (12.0-16.0) g/dl Hct 45.0 (37.0-47.0) % MCV 97.0 (80.0-100.0) fL MCH 31.0 (25.0-34.0) pg MCHC 32.0 (32.0-36.0) g/dL RDW Std Deviation 46.6 H (36.4-46.3) fL RDW Coeff of Monae 13.1 (11.5-14.5) % Plt Count 199 (130-400) K/uL MPV 8.9 L (9.4-12.4) fL Immature Gran % (Auto) 0.2 % Neut % (Auto) 71.8 % Lymph % (Auto) 20.8 % Amite % (Auto) 6.2 % Eos % (Auto) 0.4 % Baso % (Auto) 0.6 % Neut # (Auto) 3.69 (1.40-6.50) K/uL Lymph # (Auto) 1.07 L (1.20-3.40) K/uL Amite # (Auto) 0.32 (0.11-0.59) K/uL Eos # (Auto) 0.02 (0.00-0.50) K/uL Baso # (Auto) 0.03 (0.00-0.20) K/uL Immature Gran # (Auto) 0.01 (0.01-0.20) K/uL ESR 36 H (0-30) mm/hr PT 10.8 (9.0-12.0) Seconds INR 1.0 (0.9-1.1) APTT 27 (21-31) Seconds PTT Ratio 1.0 Sodium 141 (136-145) mmol/L Potassium 3.9 (3.5-5.1) mmol/L Chloride 105 (98-107) mmol/L Carbon Dioxide 28 (21-32) mmol/L Anion Gap 8 (3-11) BUN 14 (6-23) mg/dl Creatinine 0.73 (0.6-1.2) mg/dl Est Cr Clr Drug Dosing 70.3 ml/min eGFR 85.18 BUN/Creatinine Ratio 19.2 (10-20) Glucose 114 H (70-99(Fasting)) mg/dl Calcium 9.8 (8.6-10.3) mg/dl Magnesium 2.0 (1.7-2.4) mg/dl Total Bilirubin 0.6 (0.2-1.0) mg/dl AST 30 (13-39) U/L ALT 19 (7-52) U/L Alkaline Phosphatase 100 (34-104) U/L Troponin I High Sens 8.2 (0-14) pg/ml C-Reactive Protein 0.50 (0-0.5) mg/dl Total Protein 7.4 (6.0-8.3) gm/dl Albumin 4.1 (3.4-5.0) gm/dl Globulin 3.3 (2.5-4.0) gm/dl Albumin/Globulin Ratio 1.2 (0.9-2) TSH 0.731 (0.300-4.500) uIu/ml Administered Medications Discontinued Medications Aspirin (Aspirin Chew 324 Mg) 324 mg PO NOW STA Stop: 12/20/24 14:44 Last Admin: 12/20/24 15:29 Dose: 324 mg Documented By: FG Imaging Data Radiologist's Impression: Head CT 12/20/24 13:15 CT head/brain wo con CLINICAL HISTORY: 74 years-old Female with cva. Acute stroke like symptoms TECHNIQUE: Multiple axial CT images of the head were obtained without contrast. A dose lowering technique was utilized adhering to the principles of ALARA. CT DOSE: 625.8 mGy.cm COMPARISON: Brain MRI 08/06/2022 FINDINGS: No acute intracranial hemorrhage, midline shift, intracranial mass, hydrocephalus, territorial ischemia or abnormal extra-axial collection. Involutional changes with chronic microvascular ischemic disease redemonstrated. The calvarium is intact. Prior bilateral injury repair. The paranasal sinuses, mastoid air cells, and middle ear cavities are clear. IMPRESSION: No acute intracranial abnormality identified. ACT 112: Negative or not required by law. The above report was generated using voice recognition software. It may contain grammatical, syntax or spelling errors. Electronically signed by: Aydin Tsai M.D. 12/20/2024 2:42 PM Discharge Plan Visit Data Chief Complaint: Eye Problems Stated Complaint: BRANCH ARTERY OCCLUSION ED Provider: Burke Acevedo Discharge Problem: Central retinal artery occlusion, Alteration in vision, Headache Condition: Fair Forms Stand Alone Forms: My [facility] Fluid Stone Prescriptions Prescriptions: No Action acetaminophen [Tylenol Arthritis Pain] 650 mg tablet extended release 650 mg PO Q8H PRN (Reason: Pain) tramadol 50 mg tablet 50 mg PO Q6H PRN (Reason: pain) Qty: 40 0RF Rx Instructions: initial therapy furosemide 20 mg tablet 20 mg PO DAILY PRN (Reason: edema) Qty: 30 2RF potassium chloride 10 mEq tablet extended release 10 meq PO DAILY PRN (Reason: Take with furosemide) Qty: 30 2RF omeprazole 40 mg capsule,delayed release(DR/EC) 40 mg PO DAILY PRN (Reason: gerd) Qty: 90 1RF Evenity 210mg/2.34mL ( 105mg/1.17mLx2) syringe 210 mg subcut MONTHLY Qty: 2.34 11RF Rx Instructions: PER PT "NEVER STARTED, DON'T THINK I'M GOING TO TAKE THIS MED" inject monthly for 12 monthly doses trazodone 50 mg tablet 50 mg PO HS PRN (Reason: insomnia) Qty: 30 5RF ferrous sulfate 325 mg (65 mg iron) tablet 325 mg PO BID magnesium citrate 100 mg capsule 150 mg PO DAILY aspirin 325 mg tablet 325 mg PO QAM Hold Instructions: preop Multiple Vitamins & Suppliment 1 dose PO DAILY Rx Instructions: BE WELL--MULTIPLE VITAMINS & SUPPLIMENTS DAILY Referrals Referrals: Maty Suárez DO [Primary Care Provider] - Discharge Problem: Central retinal artery occlusion Qualifiers: Laterality: unspecified laterality Qualified Code(s): H34.10 - Central retinal artery occlusion, unspecified eye Headache Qualifiers: Headache type: unspecified Headache chronicity pattern: unspecified pattern I ntractability: not intractable Qualified Code(s): R51.9 - Headache, unspecified
--- NOTE | 2024-12-20 14:43 | CT Scan Report ---
CT head/brain wo con CLINICAL HISTORY: 74 years-old Female with cva. Acute stroke like symptoms TECHNIQUE: Multiple axial CT images of the head were obtained without contrast. A dose lowering tech nique was utilized adhering to the principles of ALARA. CT DOSE: 625.8 mGy.cm COMPARISON: Brain MRI 08/06/2022 FINDINGS: No acute intracranial hemorrhage, midline shift, intracranial mass, hydrocephalus, territorial ischem ia or abnormal extra-axial collection. Involutional changes with chronic microvascular ischemic disea se redemonstrated. The calvarium is intact. Prior bilateral injury repair. The paranasal sinuses, mastoid air cells, and middle ear cavities are clear. IMPRESSION: No acute intracranial abnormality identified. ACT 112: Negative or not required by law. The above report was generated using voice recognition software. It may contain grammatical, syntax o r spelling errors. Electronically signed by: Aydin Tsai M.D. 12/20/2024 2:42 PM
[2024-12-20 14:59] LABS: Hematocrit (blood only) 45.0 % (37.0-47.0); Hemoglobin 14.4 g/dl (12.0-16.0); Immature Granulocytes # (auto) 0.01 K/uL (0.01-0.20); Immature Granulocytes % (auto) 0.2 %; Mean Corpuscular Hemoglobin 31.0 pg (25.0-34.0); Mean Corpuscular Volume 97.0 fL (80.0-100.0); Platelet Count 199 K/uL (130-400); RDW Standard Deviation 46.6 fL (36.4-46.3); Red Blood Count 4.64 M/uL (4.20-5.40); White Blood Count 5.14 K/ul (4.8-10.8)
[2024-12-20] MEDS ORDERED: ACETAMINOPHEN 325 MG TAB PO PRN (15:05)
[2024-12-20 15:16] LABS: Alanine Aminotransferase 19.0 U/L (7-52); Albumin Globulin Ratio 1.2 (0.9-2); Albumin Level 4.1 gm/dl (3.4-5.0); Alkaline Phosphatase 100.0 U/L (34-104); Anion Gap 8.0 (3-11); Bilirubin,Total 0.6 mg/dl (0.2-1.0); Blood Urea Nitrogen 14.0 mg/dl (6-23); Calcium 9.8 mg/dl (8.6-10.3); Carbon Dioxide 28.0 mmol/L (21-32); Chloride 105.0 mmol/L (98-107); Creatinine Clr Calc Pharmacy 70.3 ml/min; Globulin 3.3 gm/dl (2.5-4.0); Glucose 114.0 mg/dl (70-99(Fasting)); Magnesium 2.0 mg/dl (1.7-2.4); Potassium 3.9 mmol/L (3.5-5.1); Sodium 141.0 mmol/L (136-145); Total Protein 7.4 gm/dl (6.0-8.3)
[2024-12-20] MEDS: ASPIRIN CHEW 324 MG PO STA (15:29)
[2024-12-20 15:33] LABS: INR 1.0 (0.9-1.1); Partial Thromboplastin Time 27 Seconds (21-31); Prothrombin Time 10.8 Seconds (9.0-12.0)
[2024-12-20 15:54] LABS: Thyroid Stimulating Hormone 0.731 uIu/ml (0.300-4.500)
[2024-12-20] MEDS: ASPIRIN 325 MG ECTAB PO SCH (16:49)
[2024-12-20 18:10] LABS: Hemoglobin A1C 6.1 % (4.5-5.6)
--- NOTE | 2024-12-20 19:00 | History & Physical Report ---
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 History of Present Illness Chief Complaint: "I saw a purple cloud with my right eye only, above and towards my nose, last night at home, around 8:30pm to 9:00pm (12/19/2024). My vision was also blurry in the right eye. My left eye was fine. I had no pain. I never had this problem ever before. So, I went to my pipeline construction inspector Dr. Hong Luu ([facility]) earlier today (12/20/2024, 11:30am), and he did some tests on both my eyes and said my left eye was fine, but that my right eye had a branch artery occlusion and that I should go to the hospital. So, my drove me to [facility] ER to get my right eye checked out. I can still see a purple cloud with my right eye only, above and towards my nose. My vision is still a little blurry in the right eye. My left eye is still fine. Still no pain at all. Did the CAT scan of my brain show anything at all?" Primary Care Provider: Maty Suárez, 74 years old right hand dominant female with PMH of FULL CODE @ home, obesity with BMI 35.6 (height 160.0 cm; weight 91.1 kg = 200.4 pounds), s/p gastric bypass (2004) with pre-surgical weight 325 pounds and post-surgical weight 186 pounds, now 200.4 pounds on 12/20/2024, iron deficiency on iron sulfate 325mg PO bid, pre-DM with HbA1c 6.1% (12/20/2024, 2:36pm), insomnia disorder on trazodone 50mg PO qhs prn insomnia, and LLE DVT (~8 years ago) now on ASA 325mg PO daily, who reports: "I saw a purple cloud with my right eye only, above and towards my nose, last night at home, around 8:30pm to 9:00pm (12/19/2024). My vision was also blurry in the right eye. My left eye was fine. I had no pain. I never had this problem ever before. So, I went to my pipeline construction inspector [facility] Hong Luu ([facility] earlier today (12/20/2024, 11:30am), and he did some tests on both my eyes and said my left eye was fine, but that my right eye had a branch artery occlusion and that I should go to the hospital. So, my drove me to [facility] ER to get my right eye checked out. I can still see a purple cloud with my right eye only, above and towards my nose. My vision is still a little blurry in the right eye. My left eye is still fine. Still no pain at all. Did the CAT scan of my brain show anything at all?" Patient denies antecedent/coincident fevers, chills, diaphoresis, cough, wheeze, sore throat, hemoptysis, shortness of breath, dyspnea on exertion, chest pains, palpitations, pleurisy, nausea, vomit, diarrhea, abdominal pain, pelvic pain, dysuria, hematuria, frequency, urgency, flank pain, headache, dizziness, visual changes, hearing changes, weakness, falls, sick contacts, trauma, travel history, or food/drug ingestions novel/new. All other review of systems is reported as negative. In [facility] ER bed #B2, patient was afebrile at 36.6 degrees Celsius, HR 76, RR 18, O2 sat 99% on room air, and BP 153/89 (12/20/2024, 12:50pm). Exam was noted for the absence of diplopia, homonymous hemianopsia, superior/inferior/nasal/temporal quadrantanopia, nystagmus, gaze paresis, anisocoria, miosis, mydriasis, chemosis, hyphema, scleral injection, conjunctivi tis, pterygium, facial droop, dysarthria, or pronator drift. Labs in [facility] ER bed #B2 included: WBC 5.14, N72 L21 M6 B1, Hb 14.4, MCV 97.0, MCHC 32.0, platelet 199 (12/20/2024, 2:36pm). ESR 36 (12/20/2024, 2:36pm). CRP 0.5 (12/20/2024, 2:36pm). INR 1.0 (12/20/2024, 2:36pm). Na 141, K 3.9, BUN 14, creatinine 0.73, Ca 9.8, Mg 2.0, glucose 114, HbA1c 6.1%, AST 30, ALT 19, ALK PHOS 100, trop-I #1 8.2. (12/20/2024, 2:36pm). TSH 0.731 (12/20/2024, 2:36pm). Additional testing in [facility] ER bed #B2 included: CT brain without IV contrast (12/20/2024, 1:15pm): No acute bleed, mass, or midline shift. EKG (12/20/2024, 2:26pm): NSR @ 70, PA 192, QTC 438, LAD, TWI in aVL, no acute ST depressions/elevations (by my review). Historical testing in [facility] includes: EKG (04/01/2022, 10:34am): NSR @ 75, PA 186, QTC 435, LAD, TWI in aVL, no acute ST depressions/elevations (by my review). TTE (08/08/2023, 10:35am): 1. LVEF 50-55%. No definite regional wall motion abnormalities. Mild concentric LVH. 2. Mild LA dilation. Normal RA size. 3. No significant valvular abnormalities. 4. Normal estimated RVSP. 5. Technically difficult study, enhanced with IV definity. 6. No prior study available for comparison. (as per CARDS Dr. Noe Boyce). Patient subsequently underwent Tele-Neurology Service consultation with [facility] / Neurologist Dr. Galeano, who opined that the window for TPA had passed given patient's reported onset of symptoms on 12/19/2024, 8:30pm to 9:00pm, and patient's arrival to [facility] ER on 12/20/2024, 12:50pm. Patient was subsequently placed on quality assurance monitor body overnight, awaiting MRI brain without IV contrast (given patient's allergy to IV contrast causing rash)(12/20/2024, 3:00pm), MRA head/neck without IV contrast (given patient's allergy to IV contrast causing rash)(12/20/2024, 3:00pm), fasting lipid panel (12/21/2024, 4:44am), TTE (12/21/2024, 7:00am), and PT/OT/Speech & Swallow Service evaluations in the 12/21/2024 am. In the interim, patient was continued on her home-scheduled ASA 325mg PO daily (cf., administered as ASA 324mg PO x 1 dose on 12/20/2024, 3:29pm). Allergies Allergy/AdvReac Type Severity Reaction Status Date / Time adhesive tape Allergy Mild Rash Verified 12/20/24 15:25 Iodinated Contrast Media Allergy Mild RASH Verified 12/20/24 15:23 latex Allergy Mild Rash Verified 12/20/24 15:23 promethazine [From Phenergan] Allergy Unknown CAN'T Verified 12/20/24 15:23 REMEMBER hydrocodone [From Vicodin] AdvReac Intermediate NAUSEA/VOMI Verified 12/20/24 15:25 TING morphine AdvReac Intermediate TREMORS, Verified 12/20/24 15:23 cold and shaking propoxyphene AdvReac Intermediate nausea and Verified 12/20/24 15:23 vomiting simvastatin AdvReac Intermediate LEG PAIN Verified 12/20/24 15:23 Home Medications Medication Instructions Recorded Confirmed Type aspirin 325 mg tablet 325 mg PO QAM 08/08/20 12/20/24 History acetaminophen 650 mg 650 mg PO Q8H PRN Pain 07/17/23 12/20/24 History tablet,extended release (Tylenol Arthritis Pain) furosemide 20 mg tablet 20 mg PO DAILY PRN edema #30 tabs 11/06/23 12/20/24 Rx potassium chloride 10 mEq 10 meq PO DAILY PRN Take with 11/06/23 12/20/24 Rx tablet,extended release furosemide #30 tabs magnesium citrate 100 mg capsule 150 mg PO DAILY 04/23/24 12/20/24 History omeprazole 40 mg capsule,delayed 40 mg PO DAILY PRN gerd #90 caps 06/10/24 12/20/24 Rx release ferrous sulfate 325 mg (65 mg 325 mg PO BID 07/23/24 12/20/24 History iron) tablet tramadol 50 mg tablet 50 mg PO Q6H PRN pain #40 tabs 10/12/24 12/20/24 Rx Evenity 210 mg/2.34 mL (105 210 mg (2.34 mL) subcut MONTHLY 10/29/24 12/20/24 Rx mg/1.17 mL x 2) subcutaneous #2.34 mL syringe (romosozumab-aqqg) trazodone 50 mg tablet 50 mg PO HS PRN insomnia #30 tabs 11/25/24 12/20/24 Rx Multiple Vitamins & Suppliment 1 dose PO DAILY 12/20/24 12/20/24 History Past Med/Surg History Problem List (Updated 12/20/24 @ 20:02 by Karsten Ayon MD, PhD) 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 Headache (Acute) Alteration in vision (Acute) Central retinal artery occlusion (Acute) Acute lumbar myofascial strain Disc degeneration, lumbar Status post bilateral knee replacements Lumbar stenosis with neurogenic claudication Moderate at L4-5 S/P gastric bypass Secondary hyperparathyroidism Osteoporosis Vitamin D deficiency Lumbar radiculopathy Degenerative arthritis of lumbar spine Trochanteric bursitis, left hip Type 2 diabetes mellitus Vitamin B12 deficiency (Chronic) Nephrolithiasis (Acute) Eczema (Chronic) Acid reflux disease (Chronic) BPPV (benign paroxysmal positional vertigo) Peripheral neuropathy Hands and feet Degenerative joint disease of left elbow Hip bursitis, left Nocturia History of DVT (deep vein thrombosis) RLE - July 2016 - unk etiology - on ASA 325mg - no known clotting disorder Incomplete left bundle branch block Insomnia Hyperlipidemia (Chronic) Iron deficiency anemia (Acute) Medical History Carpal tunnel syndrome Urinary leakage GERD (gastroesophageal reflux disease) Well controlled and stable History of skin cancer Surgical History Status post left hip replacement History of tooth extraction all teeth removed History of laparoscopic cholecystectomy History of hysterectomy with unilateral oophorectomy S/P cataract extraction bilateral History of left hip replacement 08/30/20 @ [facility] at L4-L5 1 attempt. History of esophagogastroduodenoscopy (EGD) H/O colonoscopy oct 2013 repeat 10yrs H/O lithotripsy S/P panniculectomy S/P knee replacement Left and Right S/P inguinal hernia repair Family History (Updated 12/20/24 @ 19:58 by Karsten Ayon MD, PhD) Mother , at 85 years of age from Alzheimer's dementia. Alzheimer disease Father , at 80 years of age from Alzheimer's dementia. Alzheimer disease Other No family history of adverse response to anesthesia Denies family history of Ovarian cancer Prostate cancer Myocardial infarction Breast cancer Colorectal cancer Social History (Updated 12/20/24 @ 19:59 by Karsten Ayon MD, PhD) Smoking Status: Never smoker Second Hand Exposure: No; Do You Dip or Chew Tobacco: No; Hx Alcohol Use: Yes Alcohol type: wine Alcohol Intake Frequency: 2-3 x/Week Hx Substance Use: No Preferred Language: Panamanian Communication Ability: Effective Visual Impairment: No Limitations Typing Secretary Required: No Beliefs That Will Affect Care: None marital status: Current Living Situation: Spouse current occupational status: retired How many Children do You have: 2 How many Children do You have Comment: 54y son and 52y daughter, both alive and well. Feels Safe at Home: Yes Seatbelt Use: always Assistive Devices: Cane, Denture - Upper, Denture - Lower and Glasses Review of Systems Constitutional: As above in the History of Present Illness. Physical Exam Constitutional: General: Comfortable, cooperative and coherent. Wide awake and alert. Not confused, lethargic, or obtunded. Patient speaks in complete, fluent, and articulate sentences, without pause, interruption, cough, or wheeze. HEENT: NC/AT. EOMI. PERRL. No diplopia, homonymous hemianopsia, superior/inferior/nasal/temporal quadrantanopia, nystagmus, gaze paresis, anisocoria, miosis, mydriasis, chemosis, hyphema, scleral injection, conjunctivitis, pterygium, facial droop, dysarthria, or pronator drift. No otorrhea. No rhinorrhea. Neck: Supple, no stridor, bruit, or goiter. Jugular venous pressure 3 cm above the sternal angle of [place], which is typically 5 cm above the right atrium. Lymph: No anterior/posterior cervical lymphadenopathy, supraclavicul ar/infraclavicular lymphadenopathy, axilla/epitrochlear/inguinal lymphadenopathy. Chest: Symmetric rise and fall with respirations. Non-tender to palpation. Heart: RRR, S1 and S2. No S3 or S4 summation gallop. No tripartite friction rub. No murmur. Lungs: Clear to auscultation and percussion. No audible expiratory wheeze, egophony, pectoriloquy, increase in tactile fremitus, or flatness/dullness to percussion at the bases. Abd: Soft, non-tender, non-distended. Bowel sounds auscultated in all 4 quadrants. No rebound, guarding, Mckeon's sign, or organomegaly. Ext: No clubbing, cyanosis, or edema. 2+ pedal pulses bilaterally. Skin: No decubitus ulcer or enanthem or exanthem. Neuro: Alert and oriented in regards to person, place, time, and situation. No tremors, tics, or myoclonus. DTR+. 5/5 motor strength in all 4 extremities, both proximally and distally. Urology: No parada catheter. No purewick. No urethral discharge. Results & Data Results & Data Vital Signs (Past 12 Hours) Vital Signs Temp Pulse Pulse Resp BP BP Pulse Ox 12/20/24 15:30 77 12 142/81 H 96 12/20/24 15:00 70 22 127/74 97 12/20/24 14:41 72 16 140/81 99 12/20/24 14:35 78 12/20/24 13:45 76 22 137/60 99 12/20/24 12:50 36.6 C 76 18 153/89 H 99 O2 Del Method 12/20/24 15:30 Room Air 12/20/24 15:00 Room Air 12/20/24 14:41 Room Air 12/20/24 14:35 12/20/24 13:45 Room Air 12/20/24 12:50 Room Air Laboratory Results As above in the History of Present Illness. Diagnostic Findings As above in the History of Present Illness. Medications Administered As above in the History of Present Illness. 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
[2024-12-20] MEDS: ACETAMINOPHEN 325 MG TAB PO SCH (19:01)
--- NOTE | 2024-12-20 21:37 | Magnetic Resonance Report ---
MRI brain without contrast MRA of the head without contrast Neck MRA without and with contrast Provided History: Retinal artery occlusion . Comparison: None Technique: Brain MRI: Axial diffusion, FLAIR, T2-weighted, susceptibility, and coronal T1-weighted images were obtained without intravenous contrast. Head MRA: 3D [id number] MRA of the [place] of [place] was performed without intravenous contrast. Neck MRA: Limited non contrast 2DTOF images were obtained of the mid-cervical region. Following intravenous gadolinium-based contrast administration, a contrast enhanced MRA of the neck/cervical vessels was performed. Three-dimensional reconstructions of the neck and head MRA were created, which were reviewed by the radiologist. Findings: Brain MRI: Axial diffusion weighted images demonstrate no definite acute infarct. On the FLAIR images, there is nonspecific mild periventricular T2-hyperintensity, which are most likely related to chronic small vessel ischemic disease. There is no definite intracranial hemorrhage on susceptibility images. Ventricles are proportionate to the cerebral sulci. Mild to moderate sequelae of chronic small vessel ischemic disease. Head MRA demonstrates no definite aneurysm or stenosis of the major intracranial arteries. Neck MRA demonstrates patent major cervical arteries. The normal distal right internal carotid artery measures 5 mm. The normal distal left internal carotid artery measures 5 mm. Antegrade flow in the major cervical vasculature. Impression: 1. No evidence of acute infarction or intracranial hemorrhage. 2. Head MRA demonstrates no definite aneurysm or stenosis of the major intracranial arteries. 3. Neck MRA demonstrates patent major cervical arteries. Electronically signed by Kishore Rodriguez 12-20-2024 9:37 PM
--- NOTE | 2024-12-20 21:37 | Magnetic Resonance Report ---
MRI brain without contrast MRA of the head without contrast Neck MRA without and with contrast Provided History: Retinal artery occlusion . Comparison: None Technique: Brain MRI: Axial diffusion, FLAIR, T2-weighted, susceptibility, and coronal T1-weighted images were obtained without intravenous contrast. Head MRA: 3D [id number] MRA of the [place] was performed without intravenous contrast. Neck MRA: Limited non contrast 2DTOF images were obtained of the mid-cervical region. Following intravenous gadolinium-based contrast administration, a contrast enhanced MRA of the neck/cervical vessels was performed. Three-dimensional reconstructions of the neck and head MRA were created, which were reviewed by the radiologist. Findings: Brain MRI: Axial diffusion weighted images demonstrate no definite acute infarct. On the FLAIR images, there is nonspecific mild periventricular T2-hyperintensity, which are most likely related to chronic small vessel ischemic disease. There is no definite intracranial hemorrhage on susceptibility images. Ventricles are proportionate to the cerebral sulci. Mild to moderate sequelae of chronic small vessel ischemic disease. Head MRA demonstrates no definite aneurysm or stenosis of the major intracranial arteries. Neck MRA demonstrates patent major cervical arteries. The normal distal right internal carotid artery measures 5 mm. The normal distal left internal carotid artery measures 5 mm. Antegrade flow in the major cervical vasculature. Impression: 1. No evidence of acute infarction or intracranial hemorrhage. 2. Head MRA demonstrates no definite aneurysm or stenosis of the major intracranial arteries. 3. Neck MRA demonstrates patent major cervical arteries. Electronically signed by Kishore Rodriguez 12-20-2024 9:37 PM
--- NOTE | 2024-12-20 21:41 | Magnetic Resonance Report ---
MRI brain without contrast MRA of the head without contrast Neck MRA without and with contrast Provided History: Retinal artery occlusion . Comparison: None Technique: Brain MRI: Axial diffusion, FLAIR, T2-weighted, susceptibility, and coronal T1-weighted images were obtained without intravenous contrast. Head MRA: 3D [id number] MRA of the [place] of [place] was performed without intravenous contrast. Neck MRA: Limited non contrast 2DTOF images were obtained of the mid-cervical region. Following intravenous gadolinium-based contrast administration, a contrast enhanced MRA of the neck/cervical vessels was performed. Three-dimensional reconstructions of the neck and head MRA were created, which were reviewed by the radiologist. Findings: Brain MRI: Axial diffusion weighted images demonstrate no definite acute infarct. On the FLAIR images, there is nonspecific mild periventricular T2-hyperintensity, which are most likely related to chronic small vessel ischemic disease. There is no definite intracranial hemorrhage on susceptibility images. Ventricles are proportionate to the cerebral sulci. Mild to moderate sequelae of chronic small vessel ischemic disease. Head MRA demonstrates no definite aneurysm or stenosis of the major intracranial arteries. Neck MRA demonstrates patent major cervical arteries. The normal distal right internal carotid artery measures 5 mm. The normal distal left internal carotid artery measures 5 mm. Antegrade flow in the major cervical vasculature. Impression: 1. No evidence of acute infarction or intracranial hemorrhage. 2. Head MRA demonstrates no definite aneurysm or stenosis of the major intracranial arteries. 3. Neck MRA demonstrates patent major cervical arteries. Electronically signed by Kishore Rodriguez 12-20-2024 9:40 PM
[2024-12-20] MEDS: GABAPENTIN 300 MG CAP PO SCH (22:07)
[2024-12-21 07:03] LABS: Cholesterol 154.0 mg/dl (0-200); HDL Cholesterol 46.0 mg/dl; Triglycerides 66.0 mg/dl (0-150)
[2024-12-21] MEDS: DICLOFENAC SOD 1% GEL 100 GM TUBE EXT SCH (07:56)
--- NOTE | 2024-12-21 11:50 | Electrocardiogram Report ---
Test Reason : Blood Pressure : */* mmHG Vent. Rate : 70 BPM Atrial Rate : 70 BPM P-R Int : 192 ms QRS Dur : 120 ms QT Int : 406 ms P-R-T Axes : 11 -33 79 degrees QTcB Int : 438 ms Normal sinus rhythm Left axis deviation Incomplete left bundle block Minimal voltage criteria for LVH, may be normal variant Abnormal ECG When compared with ECG of 01-Apr-2022 10:34, No significant change was found Confirmed by Francisco Juarez ([id number]) on 12/21/2024 11:50:17 AM Referred By: REFERRED SELF Confirmed By: Francisco Juarez
--- NOTE | 2024-12-21 12:52 | XCELERA ---
[id number]
[2024-12-21 13:20] VITALS: BP 128/83; PULSE 83; RESP 17; TEMP 98.1; O2SAT 95
--- NOTE | 2024-12-21 18:15 | Discharge Summary ---
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 Patient also reports that her chief complaint of "I saw a purple cloud with my right eye only, above and towards my nose, last night at home, around 8:30pm to 9:00pm (12/19/2024)." on admission date 12/20/2024, has now been replaced with "Now I see an orange cloud with my right eye only, above and towards my nose, this morning (8:00am, 12/21/2024) and now (2:00pm, 12/21/2024). Will this orange cloud ever go away? My vision is otherwise ok/good." Of note, MRI brain without IV contrast, MRA head/neck without IV contrast (12/20/2024, 3:05pm) revealed: 1. No evidence of acute infarction or intracranial hemorrhage. 2. Head MRA demonstrates no definite aneurysm or stenosis of the major intracranial arteries. 3. Neck MRA demonstrates patent major cervical arteries. Hence, patient did not have an acute branch retinal artery occlusion of her left eye, as postulated by her engraver seals Dr. Hong Luu ([place], [place]) on a visit to his clinic on 12/20/2024, 11:30am. In addition, patient did not have an acute CVA; instead, I surmise that patient probably does have cerebrovascular disease, and that such cerebrovascular disease was not sufficient to result in an acute branch retinal artery occlusion of her left eye, or an acute CVA. Perhaps, patient sustained an acute TIA despite taking ASA 325mg PO daily at home for the past several years. To this end, patient underwent fasting lipid panel testing (12/21/2024, 6:10am), which revealed total cholesterol 154 mg/dL, LDL 95 mg/dL, VLDL 13 mg/dL, HDL 46 mg/dL. Patient reports that she cannot tolerate statins at all as they "cause leg pain." Patient was subsequently advised to start taking niacin 10mg PO daily for the next week, and to watch for facial flushing, which can occur when a person takes niacin, particularly as the dose of niacin is increased beyond 20mg PO daily, as an [id number] treatment for hyperlipidemia. Patient was further advised that she can mitigate facial flushing, should it develop as her niacin dose is increased over the next several weeks, by taking ASA 81mg PO daily prior to taking niacin 10mg PO daily for the next week. Patient reports that she will comply with this recommendation. In addition, I advised the patient that she cut down her home- scheduled ASA 325mg PO daily and start taking ASA 81mg PO daily as well as start taking plavix 75mg PO daily on 12/21/2024. Patient inquired as to how much plavix costs as she had looked into taking plavix in the past when "it was a brand name drug and that it cost $100 per month and that was too expensive for me to buy, so I did not take plavix." I subsequently checked the farr of plavix 75mg PO daily on www.[employer], and learned that it costs $16.23 per month @ [facility] (which is the pharmacy that patient utilizes) and $12.93 per month @ [facility] (which the patient does not utilize at this time). Patient reported that she can afford to pay $16.23 per month @ [facility] and will start taking plavix 75mg PO daily on 12/21/2024 pm, and thereafter, indefinitely, in combination with new ASA 81mg PO daily and niacin 10mg PO daily, all on 12/21/2024, at her home. Of note, patient underwent TTE (12/21/2024, 8:56am), which revealed: 1. LV systolic function normal with LVEF 60-65%. No regional wall motion abnormalities. Mild concentric LVH. 2. RV not well visualized. RV systolic function normal. 3. LA mildly dilated. Borderline KILEY. Injection of contrast documents NO interatrial shunt. 4. No significant . No significant AR. 5. No significant NJ. No significant PS. 6. No significant MR. No significant MS. 7. No significant TR. No significant TS. 8. Aortic root normal size. Normal IVC size and collapsibility with sniff indicates normal RAP 3 mm Hg. 9. No pericardial effusion. 10.Grade I LV diastolic dysfunction with late E/A ratio (8.1 cm/sec / 13.1 cm/sec = 0.618 (abnormal relaxation pattern). (as per CAR[facility] Dr. Francisco Juarez). Of note, patient had no complaints (e.g., weight gain, paroxysmal nocturnal dyspnea, orthopnea, platypnea) by history, or stigmata (e.g., pulse pressure narrowing, JVD, HJR, bibasilar crackles) on exam to suggest an acute exacerbat ion of chronic diastolic CHF with preserved LVEF 60-65% (as noted on 12/21/2024, 8:56am TTE, CARDS Dr. Francisco Juarez) while in [facility] from admission date 12/20/2024 to discharge date 12/21/2024. Hence, patient requires no pharmacologic intervention to treat her chronic diastolic CHF while in [facility] from admission date 12/20/2024 to discharge date 2024, or after discharge back to her home on 12/21/2024 as patient reports that she takes lasix 20mg PO daily prn leg edema, and not on a daily/regular/scheduled basis at all. Of final note, patient underwent PT/OT/Speech & Swallow Service evaluations on 12/21/2024, and was deemed appropriate for D/C back to her home today, 12/21/2024. Admission HPI Per Admitting Provider 74 years old right hand dominant female with PMH of FULL CODE @ home, obesity with BMI 35.6 (height 160.0 cm; weight 91.1 kg = 200.4 pounds), s/p gastric bypass (2004) with pre-surgical weight 325 pounds and post-surgical weight 186 pounds, now 200.4 pounds on 12/20/2024, iron deficiency on iron sulfate 325mg PO bid, pre-DM with HbA1c 6.1% (12/20/2024, 2:36pm), insomnia disorder on trazodone 50mg PO qhs prn insomnia, and LLE DVT (~8 years ago) now on ASA 325mg PO daily, who reports: "I saw a purple cloud with my right eye only, above and towards my nose, last night at home, around 8:30pm to 9:00pm (12/19/2024). My vision was also blurry in the right eye. My left eye was fine. I had no pain. I never had this problem ever before. So, I went to my engraver seals Dr. Hong Luu ([place]) earlier today (12/20/2024, 11:30am), and he did some tests on both my eyes and said my left eye was fine, but that my right eye had a branch artery occlusion and that I should go to the hospital. So, my drove me to [facility] ER to get my right eye checked out. I can still see a purple cloud with my right eye only, above and towards my nose. My vision is still a little blurry in the right eye. My left eye is still fine. Still no pain at all. Did the CAT scan of my brain show anything at all?" Patient denies antecedent/coincident fevers, chills, diaphoresis, cough, wheeze, sore throat, hemoptysis, shortness of breath, dyspnea on exertion, chest pains, palpitations, pleurisy, nausea, vomit, diarrhea, abdominal pain, pelvic pain, dysuria, hematuria, frequency, urgency, flank pain, headache, dizziness, visual changes, hearing changes, weakness, falls, sick contacts, trauma, travel hist ory, or food/drug ingestions novel/new. All other review of systems is reported as negative. In [facility] ER bed #B2, patient was afebrile at 36.6 degrees Celsius, HR 76, RR 18, O2 sat 99% on room air, and BP 153/89 (12/20/2024, 12:50pm). Exam was noted for the absence of diplopia, homonymous hemianopsia, superior/inferior/nasal/temporal quadrantanopia, nystagmus, gaze paresis, anisocoria, miosis, mydriasis, chemosis, hyphema, scleral injection, conjunctivitis, pterygium, facial droop, dysarthria, or pronator drift. Labs in [facility] ER bed #B2 included: WBC 5.14, N72 L21 M6 B1, Hb 14.4, MCV 97.0, MCHC 32.0, platelet 199 (12/20/2024, 2:36pm). ESR 36 (12/20/2024, 2:36pm). CRP 0.5 (12/20/2024, 2:36pm). INR 1.0 (12/20/2024, 2:36pm). Na 141, K 3.9, BUN 14, creatinine 0.73, Ca 9.8, Mg 2.0, glucose 114, HbA1c 6.1%, AST 30, ALT 19, ALK PHOS 100, trop-I #1 8.2. (12/20/2024, 2:36pm). TSH 0.731 (12/20/2024, 2:36pm). Additional testing in [facility] ER bed #B2 included: CT brain without IV contrast (12/20/2024, 1:15pm): No acute bleed, mass, or midline shift. EKG (12/20/2024, 2:26pm): NSR @ 70, NJ 192, QTC 438, LAD, TWI in aVL, no acute ST depressions/elevations (by my review). Historical testing in [facility] includes: EKG (04/01/2022, 10:34am): NSR @ 75, NJ 186, QTC 435, LAD, TWI in aVL, no acute ST depressions/elevations (by my review). TTE (08/08/2023, 10:35am): 1. LVEF 50-55%. No definite regional wall motion abnormalities. Mild concentric LVH. 2. Mild LA dilation. Normal RA size. 3. No significant valvular abnormalities. 4. Normal estimated RVSP. 5. Technically difficult study, enhanced with IV definity. 6. No prior study available for comparison. (as per CARDS Dr. Noe Boyce). Patient subsequently underwent Tele-Neurology Service consultation with [place] [facility] [facility] / Neurologist Dr. Galeano, who opined that the window for TPA had passed given patient's reported onset of symptoms on 12/19/2024, 8:30pm to 9:00pm, and patient's arrival to [facility] ER on 12/20/2024, 12:50pm. Patient was subsequently placed on cardiac monitor overnight, awaiting MRI brain without IV contrast (given patient's allergy to IV contrast causing rash)(12/20/2024, 3:00pm), MRA head/neck without IV contrast (given patient's allergy to IV contrast causing rash)(12/20/2024, 3:00pm), fasting lipid panel (12/21/2024, 4:44am), TTE (12/21/2024, 7:00am), and PT/OT/Speech & Swallow Service evaluations in the 12/21/2024 am. In the interim, patient was continued on her home-scheduled ASA 325mg PO daily (cf., administered as ASA 324mg PO x 1 dose on 12/20/2024, 3:29pm). Discharge Exam Constitutional General: Comfortable, cooperative and coherent. Wide awake and alert. Not confused, lethargic, or obtunded. Patient speaks in complete, fluent, and articulate sentences, without pause, interruption, cough, or wheeze. HEENT: NC/AT. EOMI. PERRL. No diplopia, homonymous hemianopsia, superior/inferior/nasal/temporal quadrantanopia, nystagmus, gaze paresis, anisocoria, miosis, mydriasis, chemosis, hyphema, scleral injection, conjunctivitis, pterygium, facial droop, dysarthria, or pronator drift. No ot orrhea. No rhinorrhea. Neck: Supple, no stridor, bruit, or goiter. Jugular venous pressure 3 cm above the sternal angle of [place], which is typically 5 cm above the right atrium. Lymph: No anterior/posterior cervical lymphadenopathy, supraclavicular/infraclavicular lymphadenopathy, axilla/epitrochlear/inguinal lymphadenopathy. Chest: Symmetric rise and fall with respirations. Non-tender to palpation. Heart: RRR, S1 and S2. No S3 or S4 summation gallop. No tripartite friction rub. No murmur. Lungs: Clear to auscultation and percussion. No audible expiratory wheeze, egophony, pectoriloquy, increase in tactile fremitus, or flatness/dullness to percussion at the bases. Abd: Soft, non-tender, non-distended. Bowel sounds auscultated in all 4 quadrants. No rebound, guarding, Mckeon's sign, or organomegaly. Ext: No clubbing, cyanosis, or edema. 2+ pedal pulses bilaterally. Skin: No decubitus ulcer or enanthem or exanthem. Neuro: Alert and oriented in regards to person, place, time, and situation. No tremors, tics, or myoclonus. DTR+. 5/5 motor strength in all 4 extremities, both proximally and distally. Urology: No parada catheter. No purewick. No urethral discharge. Discharge Plan Discharge Items Patient Disposition: Home - Self-Care Reason For Visit: R CENTRAL RETINAL ARTERY OCCLUSION Discharge Diagnosis: 1. TIA, s/p rule out acute CVA, s/p rule out right branch retinal artery occlusion Condition on Discharge: Fair Activity: Resume your previous activity Lifting: Gradually increase as tolerated Bathing: No limitations Sexual Activity: When tolerated Exercise/Sports: Gradually increase as tolerated Driving/Machine Use: No limitations Weightbearing: Full weightbearing Non-emergency contact: Primary Care Provider Call non-emergency contact if: you have any medication questions Follow-up/Referrals: Maty Suárez DO [Primary Care Provider] - 12/29/24 10:30 am Diet: Heart Healthy Addtl Attending Provider Instructions: See your PCP Dr Maty Suárez within 5-7 days of hospital discharge. Pending Studies at Discharge: No Stand-Alone Forms: My [facility], Smoking Cessation Medications and DC Order Prescriptions: New clopidogrel [Plavix] 75 mg tablet 75 mg PO DAILY Qty: 30 0RF aspirin 81 mg tablet 81 mg PO DAILY Qty: 30 0RF Continued acetaminophen [Tylenol Arthritis Pain] 650 mg tablet extended release 650 mg PO Q8H PRN (Reason: Pain) tramadol 50 mg tablet 50 mg PO Q6H PRN (Reason: pain) Qty: 40 0RF Rx Instructions: initial therapy furosemide 20 mg tablet 20 mg PO DAILY PRN (Reason: edema) Qty: 30 2RF potassium chloride 10 mEq tablet extended release 10 meq PO DAILY PRN (Reason: Take with furosemide) Qty: 30 2RF omeprazole 40 mg capsule,delayed release(DR/EC) 40 mg PO DAILY PRN (Reason: gerd) Qty: 90 1RF trazodone 50 mg tablet 50 mg PO HS PRN (Reason: insomnia) Qty: 30 5RF ferrous sulfate 325 mg (65 mg iron) tablet 325 mg PO BID magnesium citrate 100 mg capsule 150 mg PO DAILY Multiple Vitamins & Suppliment 1 dose PO DAILY Rx Instructions: BE WELL--MULTIPLE VITAMINS & SUPPLIMENTS DAILY Discontinued Evenity 210mg/2.34mL ( 105mg/1.17mLx2) syringe 210 mg subcut MONTHLY Qty: 2.34 11RF Rx Instructions: PER PT "NEVER STARTED, DON'T THINK I'M GOING TO TAKE THIS MED" inject monthly for 12 monthly doses aspirin 325 mg tablet 325 mg PO QAM Hold Instructions: preop Discharge Orders: Discharge Order (Routine); Ordered 12/21/24 Ordered By: Karsten Parker/Other Patient Handouts: Prediabetes, 5 Steps for Eating Healthier Admission Data Admit Date/Time: 12/20/24 15:06 Attending Provider: Karsten Ayon Admit Provider: Karsten Ayon Primary Care Provider: Maty Suárez Other Providers: Jerry Metcalf Hospital Stay Data Consultations 12/20/24 14:42 ED Decision to Admit Stat Diagnostic Imagining Performed 12/20/24 13:15 CT head/brain wo con Stat 12/20/24 15:05 MRI Angio Brain [MR angio head wo con] Stat MRI Angio Neck [MR angio neck wo con] Stat MRI Brain [MR brain wo con] Stat Pending Results Patient Have Any Pending Studies at Discharge: No Discharge Instructions Given to Patient (Per Discharging Provider) See your PCP Dr Maty Suárez within 5-7 days of hospital discharge. Total Time Total Time Spent Total Time Spent (In Minutes): 35 minutes. Of this time period, 19 minutes were spent in coordinating patient's discharge. 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
== END 2024-12-21 15:20 | disposition home or self-care (01) | DRG 69 ==
LOC: ED 12:41 → EDINP 15:06 → 2N 19:14